=== PATIENT | male | born 1955 | race Two or more races ===

== ENCOUNTER 2024-02-11 12:02 | Emergency (ER) | payer MEDICARE, SELFPAY ==
--- NOTE | ~2024-02-11 | XR_ITS ---
EXAMINATION: XR LUMBOSACRAL SPINE CLINICAL INFORMATION: Low back pain. COMPARISON: None available. TECHNIQUE: Three views of the lumbosacral spine. FINDINGS: Spinal alignment is anatomic in the sagittal projection. Vertebral body heights are preserved. There is very mild intervertebral disc space narrowing at L4-L5 and possibly L5-S1. There is facet arthropathy at these levels as well. There is no acute fracture. Sacroiliac joints are preserved. There are cholecystectomy clips. There is a large volume of stool throughout the colon. There is calcification of the abdominal aorta. XR/XR lumbar spine 2-3V IMPRESSION: No acute osseous lumbar spine abnormality. There is very mild degenerative disease at L4-L5 and L5-S1.
[2024-02-11 12:12] VITALS: BP 147/93; PULSE 97; RESP 20; TEMP 35.7; O2SAT 98; BMI 29.1
--- NOTE | 2024-02-11 12:12 | ED.EXTPRO ---
HPI - Extremity Problem General Chief complaint: Back Pain/Injury Stated complaint: L Leg Pain Radiating From Back Time Seen by Provider: 02/11/24 15:55 Source: patient and family Mode of arrival: ambulatory Limitations: no limitations History of Present Illness HPI Narrative: 68-year-old male with no significant past medical history presents emergency department with his , for complaints of left-sided back pain radiating into his lateral thigh and into the foot for the past 3 days. He reports he attempted to move a washing machine on his own began having pain the next day. He denies any falls or known trauma to the back. He states he has been using [id number] ibuprofen with no relief in symptoms. Pertinent positives and negatives discussed in HPI Related Data Previous Rx's ?Medication ?Instructions ?Recorded cyclobenzaprine 5 mg tablet 5 mg PO TID PRN muscle spasm #14 02/11/24 tabs lidocaine 5 % topical patch 1 patch topical DAILY #15 ea 02/11/24 Allergies Allergy/AdvReac Type Severity Reaction Status Date / Time No Known Allergies Allergy Verified 02/11/24 12:13 Review of Systems Review of Systems: Yes all other systems are reviewed and are negative [facility] Social History Social History Advance Directives: No Advance Directives Information Provided: No Do you have a plan to hurt others: No Plan Physical Exam Vital Signs: Vital Signs: Last Vital Signs Temp 96.6 F L 02/11/24 16:18 Pulse 73 02/11/24 16:18 Resp 13 02/11/24 16:18 BP 136/95 H 02/11/24 16:18 Pulse Ox 98 02/11/24 16:18 O2 Del Method Room Air 02/11/24 16:18 BMI result Body Mass Index 29.1 Nursing notes and vital signs reviewed. GENERAL APPEARANCE: A&0 x 4, generally well appearing, no acute distress HENMT: Normal to inspection, atraumatic, face symmetrical. Normal external ears, nose, and oropharynx clear. EYE: PERRLA, EOM intact, structures appear normal NECK: Supple without stiffness or restricted ROM. HEART: Normal rate and regular rhythm, normal S1/S2, no M/R/G LUNGS: LS CTA, moving air well. Able to speak in complete sentences. No crackles, wheezes, or rhonchi auscultated BACK: No CVAT, no obvious deformity, TTP left lower back EXTREMITIES: Moving all extremities without difficulty. Normal capillary refill. NEUROLOGICAL: Alert and oriented, moving all 4 extremities with equal strength. CN not formally tested but appearing grossly intact. Observed to ambulate with normal gait. Cognition normal SKIN: Warm and dry without any lesions, rash, or visible sores Medical Decision Making Medical Decision Making MDM Narrative: Old records reviewed for previous imaging, lab studies, ECGs, and notes. Patient was assessed the emergency department with no acute distress, toxicity noted, or red flag symptoms. Lumbar spine xray showing no signs of acute findings. Radiologist remarks on degerative disease at L4-L5 and L5-S1. Pt's symptoms are consistent with sciatica with a low suspicion of cauda equina or epidural abscess. Lidocaine patches and cyclobenzaprine sent to preferred pharmacy for management of pain. Pt educated to rest and apply heat for comfort. Patient is safe for discharge at this time with plan for [id number] Tylenol and/or NSAID such as ibuprofen or naproxen for fever/discomfort with dosing as per packaging. HPI, PE, diagnostics, and plan discussed with patient and family with no unanswered questions at this time. Strict return precautions given to return to the emergency department with new, worsening, or concerning emergent symptoms. Recommended to follow-up with there primary care provider in 24-48 hours for further treatment and management. Differential Diagnosis Differential Diagnoses: The differential diagnosis associated with the presentation includes but not limited to cauda equina, epidural abscess, stenosis, radiculopathy, fracture, dislocation, sprain, strain, musculoskeletal injury, sepsis, malignancy Independent Interpretation I performed an independent interpretation of an: Plain X-Ray Interpretation: As negative for acute findings Radiology Impression Discussion of test interpretation with radiology: I have reviewed the radiologist's reading. Independent Historian Clinical information obtained from an independent historian. History obtained from or confirmed by: Spouse Discharge Plan Discharge Clinical Impression: Sciatica Patient Disposition: Home, Self-Care Instructions: Sciatica (ED), Acute Low Back Pain (ED), Lower Back Exercises (ED) Prescriptions: New lidocaine 5 % adhesive patch,medicated 1 patch topical DAILY Qty: 15 0RF Rx Instructions: leave on most painful area for up to 12 hrs cyclobenzaprine 5 mg tablet 5 mg PO TID PRN (Reason: muscle spasm) Qty: 14 0RF Referrals: [facility] [place] Family [facility] [Provider Group] [facility] [place] Primary Care, [place] [Provider Group] [facility] [Provider Group] Stand Alone Forms: Work/School Release Print Language: Welsh
[2024-02-11 16:18] VITALS: BP 136/95; PULSE 73; RESP 13; TEMP 35.9; O2SAT 98
[2024-02-11 17:07] VITALS: BP 136/95; PULSE 73; RESP 13; TEMP 35.9; O2SAT 98
== END 2024-02-11 17:08 | disposition home or self-care (01) ==
PROVIDERS: Emergency Provider Student in an Organized Health Care Education/Training Program
DX: M54.30 Sciatica, unspecified side (principal)
CPT/HCPCS: 72100; 99283; 99284

== ENCOUNTER 2024-03-23 13:22 | Inpatient (IN) | payer SELFPAY ==
--- NOTE | ~2024-03-23 | MR_ITS ---
EXAMINATION: MR BRAIN WITHOUT CONTRAST CLINICAL INFORMATION: Cerebrovascular accident. Transient ischemic attack. Expressive aphasia. COMPARISON: CTA head and neck from 03/23/2024. TECHNIQUE: MRI of the brain was obtained using routine sequences without contrast. FINDINGS: No focal restricted diffusion is demonstrated to suggest acute or subacute cerebral ischemia. No evidence of acute or chronic hemorrhagic products on heme-sensitive imaging. Small region of Chronic encephalomalacia in the left precentral gyrus. Scattered periventricular and deep white matter T2 FLAIR hyperintensities consistent with mild underlying microangiopathy. Arachnoid granulations along the lateral aspect of the right cerebellar hemisphere. The ventricles are normal in morphology and size. No abnormal mass effect. No midline shift. Normal appearance of the pituitary gland. Normal positioning of the cerebellar tonsils. Normal arterial and venous vascular flow voids are present. Normal, homogeneous marrow signal. Mild mucosal thickening of the paranasal sinuses. No signal abnormalities within the mastoids. MR/MR head/brain wo con IMPRESSION: 1. No acute intracranial abnormalities. 2. Small region of chronic encephalomalacia in the left precentral gyrus. Mild underlying microangiopathy.
--- NOTE | ~2024-03-23 | CT_ITS ---
CT ANGIOGRAM NECK WITH CONTRAST CT ANGIOGRAM BRAIN WITH CONTRAST CLINICAL INFORMATION: Dysarthria. Slurred speech and right-sided weakness. COMPARISON: Head CT 03/23/2024. TECHNIQUE: Test bolus sequences followed by intravenous administration 70 mL of Omnipaque 350. Helical imaging was performed in the axial plane from the thoracic inlet to the skull vertex. Delayed postcontrast imaging of the head was also performed. The data was processed at the polysomnographic technologist workstation for generation of MIP sequences. Angled MIPs and volume rendered reformatted images were also generated at an offline 3D workstation under concurrent supervision. Stenoses are assessed in accordance with NASCET criteria unless otherwise indicated. This CT examination was performed using dose optimization techniques as appropriate, variously including the following: *Automated exposure control *Adjustment of mA and/or kV according to patient size (this includes techniques or standardized protocols for targeted exams where dose is matched to indication/reason for exam; i.e. extremities or head) *Use of iterative reconstruction technique FINDINGS: BRAIN: [There is no intracranial hemorrhage, hydrocephalus, extra-axial surface collection, midline shift, or other herniation pattern. Rodriguez to white matter differentiation is diffusely maintained without evidence of an evolved acute territorial infarct. The basilar cisterns are preserved. No significant soft tissue abnormality. Small osteoma along the anterior left frontal convexity. No acute osseous abnormality. The paranasal sinuses and the mastoid air cells are well aerated.] CERVICAL SOFT TISSUES AND LUNG APICES: The imaged upper lungs are clear. There is multilevel cervical spondylosis. No significant soft tissue findings within the neck. NECK CTA: [There is a classic 3 vessel configuration of the aortic arch. Proximal arch vessels are non-stenotic. The vertebral arteries are codominant. No significant ostial stenosis is visualized on either side. Both vertebral arteries are widely patent throughout their extracranial cervical course. Both common and internal carotid arteries are normal in course and caliber.] BRAIN CTA: [There is normal opacification of major intracranial arteries. No focal flow-limiting stenosis nor discrete proximal large artery occlusion. No aneurysm. Timing of the contrast bolus allows assessment of the major dural venous sinuses, which all opacify normally] CT/CT angio head neck stroke IMPRESSION: - No acute intracranial findings. No acute territorial infarcts and no intracranial hemorrhage. - No acute arterial occlusions and no significant arterial stenoses within the head or neck. Findings discussed with Mikel Woodward MD at 2:19 PM on 03/23/2024.
--- NOTE | ~2024-03-23 | CT_ITS ---
EXAMINATION: CT HEAD WITHOUT CONTRAST (STROKE PROTOCOL) CLINICAL INFORMATION: Stroke protocol. Slurring of speech, right-sided hemiparesis COMPARISON: None available. TECHNIQUE: Contiguous axial imaging was performed from the skull base to vertex without intravenous administration of contrast. This CT examination was performed using dose optimization techniques as appropriate, variously including the following: *Automated exposure control *Adjustment of mA and/or kV according to patient size (this includes techniques or standardized protocols for targeted exams where dose is matched to indication/reason for exam; i.e. extremities or head) *Use of iterative reconstruction technique DLP: 766 mGy-cm FINDINGS: Ventricles, sulci and cisterns are normal for patient's age. There is no midline shift, no abnormal intra- or extra- axial fluid accumulation. Rodriguez and white matter differentiation is normal. Bone window images show no evidence of skull fracture. CT/CT head for stroke IMPRESSION: 1. Normal CT scan of the brain. 2. No intracranial hemorrhage or skull fracture is seen. 3. No evidence of space occupying lesion could be found. 4. The current plain CT scan of the brain shows no diagnostic evidence of acute cerebral infarction. This critical result was discussed with MARJORIE Jim at 1400 hours on 03/23/2024. It was ascertained that the content and urgency of the report was understood at the time of direct communication.
[2024-03-23 13:23] VITALS: BP 150/88; PULSE 81; RESP 20; TEMP 36.7; O2SAT 98; BMI 26.6
--- NOTE | 2024-03-23 13:26 | ED_ITS ---
<Statement entered by Mikel Woodward MD - 04/08/24 15:02> Please refer to my note or detail regarding this encounter HPI - General Adult General Chief complaint: Weakness Stated complaint: Slurred speech/R arm numbness Time Seen by Provider: 03/23/24 13:34 Related Data Home Medications ?Medication ?Instructions ?Recorded ?Confirmed vitamin D3 25 mcg (1,000 unit)-vit 1 tab PO DAILY 03/23/24 03/23/24 K2 90 mcg disintegrating tablet Previous Rx's ?Medication ?Instructions ?Recorded aspirin 81 mg tablet,delayed 81 mg PO DAILY #90 tabs 03/24/24 release atorvastatin 80 mg tablet 80 mg PO DAILY #90 tabs 03/24/24 blood pressure monitor (Blood #1 ea 03/24/24 Pressure Kit) valsartan 40 mg tablet 20 mg (1/2 x 40 mg) PO BID #60 tabs 03/24/24 Allergies Allergy/AdvReac Type Severity Reaction Status Date / Time No Known Allergies Allergy Verified 03/23/24 13:27 [facility] Past Medical History Medical History (Updated 03/24/24 @ 16:40 by Lukasz Crawford MD) CAD (coronary artery disease) Hypertension Social History Social History (Updated 03/23/24 @ 15:37 by MARJORIE Lozano) Alcohol intake: current Alcohol intake frequency: holidays/special occasions only Comment: previously heavy drinker Patient Tobacco Use Status: Former Tobacco user service: No Physical Exam ED Vital Signs: BMI result Body Mass Index 26.6 Course Course Course Narrative: RME performed by Tamiko Vilchis PA-C. Patient is a 68 year old assigned male at presenting to the emergency department with word slurring, difficulty word finding, mixing words up, and right sided arm numbness/weakness. Patient states last known well was 30 minutes prior to arrival. Detailed physical exam and review of systems are deferred to the licensed clinician. Stroke alert activated. Patient brought back to the main department. registered public surveyor aware. Patient was seen and dispositioned by Dr. Woodward. Please refer to his note from the date of this encounter. Medications Administered Discontinued Medications Generic Name Dose Route Start Last Admin Trade Name Freq PRN Reason Stop Dose Admin Aspirin 81 mg 03/23/24 14:22 03/23/24 14:33 Aspirin 81 Mg Tab.Chew PO 03/23/24 14:23 81 mg ONCE ONE Administration Aspirin 81 mg 03/24/24 09:00 03/24/24 08:33 Aspirin Enteric Coated 81 Mg Tablet. PO 81 mg DAILY NATALY Administration Atorvastatin Calcium 80 mg 03/24/24 09:00 03/24/24 08:32 Atorvastatin Calcium 80 Mg Tablet PO 80 mg DAILY NATALY Administration Enoxaparin Sodium 40 mg 03/23/24 15:30 03/24/24 16:26 Enoxaparin Sodium 40 Mg/0.4 Ml Syringe SUBCUT 40 mg Q24H NATALY Administration Iohexol 100 ml 03/23/24 14:02 03/23/24 14:02 Iohexol 350 Mg/Ml 100 Ml Infus..Btl IV 03/23/24 14:03 70 ml ONCE ONE Administration Potassium Chloride 40 meq 03/23/24 15:43 03/23/24 16:28 Potassium Chloride Packet 20 Meq Packet PO 03/23/24 15:44 40 meq ONCE ONE Administration Sodium Chloride 3 ml 03/23/24 16:00 03/24/24 16:27 0.9 % Sodium Chloride Flush 3 Ml Syringe IVFLUSH 3 ml QSHIFT [facility] Administration Medical Decision Making Lab Data 03/24/24 05:40 03/24/24 05:40 Labs: Lab Results 03/23/24 03/23/24 03/23/24 Range/Units 13:41 13:46 13:46 WBC 7.1 (4.8-10.8) X10*3/uL RBC 4.30 L (4.60-5.80) X10*6/uL Hgb 13.8 L (14.0-18.0) g/dl Hct 38.8 L (42.0-52.0) % MCV 90.2 (80.0-98.0) fL MCH 32.1 (27.0-33.0) pg MCHC 35.6 (31.0-36.0) g/dl RDW 13.1 (11.0-16.0) % Plt Count 206 (160-400) X10*3/uL MPV 9.4 (9.4-12.4) fL Immature Gran % (Auto) 0.4 (0.0-0.4) % Neut % (Auto) 81.7 H (45-73) % Lymph % (Auto) 13.9 L (20-40) % Cherry % (Auto) 3.8 (2-11) % Eos % (Auto) 0.1 (0-4) % Baso % (Auto) 0.1 (0-2) % Lymph # (Auto) 1.0 L (1.2-4.9) X10*3/uL Cherry # (Auto) 0.3 (0.1-1.2) X10*3/uL Eos # (Auto) 0.0 (0.0-0.4) X10*3/uL Baso # (Auto) 0.0 (0.0-0.2) X10*3/uL Abs Immat Gran (auto) 0.03 (0.00-0.03) X10*3/uL Absolute Neuts (auto) 5.8 (2.0-8.3) x10*3/uL Absolute Nucleated RBC 0.000 (0.0-0.012) X10*3/uL Nucleated RBC % (auto) 0.0 (0.0-0.2) /100WBC PT 11.7 (11.1-13.3) SEC Whole Blood PT (11.1-13.5) sec INR 1.0 (0.9-1.1) Whole Blood INR (0.9-1.1) APTT 29.8 (26.0-36.8) SEC Sodium 139 (135-145) mmol/L Potassium 3.2 L (3.3-5.1) mmol/L Chloride 104 (96-108) mmol/L Carbon Dioxide 28 (22-29) mmol/L Anion Gap 10 L (12-20) BUN 19 H (9-16) mg/dL Creatinine 0.96 (0.5-1.4) mg/dL Estim Creat Clear Calc 69.8 Estimated GFR > 60 POC Glucose 130 H (60-115) mg/dL Random Glucose 132 H 131 H (60-115) mg/dL Estimat Average Glucose 131 mg/dL Hemoglobin A1c % 6.2 H (<6.0) % Calcium 9.4 (8.4-10.2) mg/dL Phosphorus 2.6 L (2.7-4.5) mg/dL Magnesium 1.8 (1.6-2.6) mg/dL Total Bilirubin 0.9 (0.0-1.0) mg/dL Direct Bilirubin 0.2 (0.0-0.5) mg/dL AST 16 (5-37) U/L ALT 16 (0-40) U/L Alkaline Phosphatase 55 (39-117) U/L Total Creatine Kinase 144 (38-174) U/L Troponin I High Sens 2.9 (<3.5-35.0) ng/L Total Protein 7.0 (6.5-8.0) g/dL Albumin 4.1 (3.5-5.0) g/dL Triglycerides 167 H (<150) mg/dL Cholesterol 283 H (<200) mg/dL LDL Cholesterol, Calc 212 H (<100) mg/dL HDL Cholesterol 38 L (>40) mg/dL Urine Color Urine Appearance Urine pH (5.0-9.0) Ur Specific [place] (1.005-1.025) Urine Protein (Neg-Trace) mg/dL Urine Glucose (UA) (Negative) mg/dL Urine Ketones (Negative) mg/dL Urine Blood (Negative) Urine Nitrite (Negative) Ur Leukocyte Esterase (Negative) Urine RBC (0-2) /HPF Urine WBC (0-5) /HPF Ur Squamous Epith Cells (0-2) /HPF Urine Bacteria (None Seen) Hyaline Casts (0-2) /LPF 03/23/24 03/23/24 Range/Units 14:10 14:36 WBC (4.8-10.8) X10*3/uL RBC (4.60-5.80) X10*6/uL Hgb (14.0-18.0) g/dl Hct (42.0-52.0) % MCV (80.0-98.0) fL MCH (27.0-33.0) pg MCHC (31.0-36.0) g/dl RDW (11.0-16.0) % Plt Count (160-400) X10*3/uL MPV (9.4-12.4) fL Immature Gran % (Auto) (0.0-0.4) % Neut % (Auto) (45-73) % Lymph % (Auto) (20-40) % Cherry % (Auto) (2-11) % Eos % (Auto) (0-4) % Baso % (Auto) (0-2) % Lymph # (Auto) (1.2-4.9) X10*3/uL Cherry # (Auto) (0.1-1.2) X10*3/uL Eos # (Auto) (0.0-0.4) X10*3/uL Baso # (Auto) (0.0-0.2) X10*3/uL Abs Immat Gran (auto) (0.00-0.03) X10*3/uL Absolute Neuts (auto) (2.0-8.3) x10*3/uL Absolute Nucleated RBC (0.0-0.012) X10*3/uL Nucleated RBC % (auto) (0.0-0.2) /100WBC PT (11.1-13.3) SEC Whole Blood PT 11.7 (11.1-13.5) sec INR (0.9-1.1) Whole Blood INR 1.0 (0.9-1.1) APTT (26.0-36.8) SEC Sodium (135-145) mmol/L Potassium (3.3-5.1) mmol/L Chloride (96-108) mmol/L Carbon Dioxide (22-29) mmol/L Anion Gap (12-20) BUN (9-16) mg/dL Creatinine (0.5-1.4) mg/dL Estim Creat Clear Calc Estimated GFR POC Glucose (60-115) mg/dL Random Glucose (60-115) mg/dL Estimat Average Glucose mg/dL Hemoglobin A1c % (<6.0) % Calcium (8.4-10.2) mg/dL Phosphorus (2.7-4.5) mg/dL Magnesium (1.6-2.6) mg/dL Total Bilirubin (0.0-1.0) mg/dL Direct Bilirubin (0.0-0.5) mg/dL AST (5-37) U/L ALT (0-40) U/L Alkaline Phosphatase (39-117) U/L Total Creatine Kinase (38-174) U/L Troponin I High Sens (<3.5-35.0) ng/L Total Protein (6.5-8.0) g/dL Albumin (3.5-5.0) g/dL Triglycerides (<150) mg/dL Cholesterol (<200) mg/dL LDL Cholesterol, Calc (<100) mg/dL HDL Cholesterol (>40) mg/dL Urine Color Yellow Urine Appearance Clear Urine pH 6.0 (5.0-9.0) Ur Specific [place] 1.015 (1.005-1.025) Urine Protein Trace (Neg-Trace) mg/dL Urine Glucose (UA) Negative (Negative) mg/dL Urine Ketones Negative (Negative) mg/dL Urine Blood Moderate (2+) H (Negative) Urine Nitrite Negative (Negative) Ur Leukocyte Esterase Negative (Negative) Urine RBC 6-10 H (0-2) /HPF Urine WBC 0-5 (0-5) /HPF Ur Squamous Epith Cells 0-2 (0-2) /HPF Urine Bacteria None Seen (None Seen) Hyaline Casts 0-2 (0-2) /LPF Discharge Plan Discharge Clinical Impression: Acute CVA (cerebrovascular accident), Hypertension Patient Disposition: Admitted As Inpatient Interventions: Admission Worksheet (ED) Last Done: 03/23/24 16:36 Discharge Date/Time: 03/23/24 19:09
--- NOTE | 2024-03-23 13:28 | ECG_ITS ---
Test Reason : STROKE Blood Pressure : / mmHG Vent. Rate : 073 BPM Atrial Rate : 073 BPM P-R Int : 158 ms QRS Dur : 096 ms QT Int : 394 ms P-R-T Axes : 034 -37 -01 degrees QTc Int : 434 ms Normal sinus rhythm Left axis deviation Minimal voltage criteria for LVH, may be normal variant ( R in aVL ) Inferior infarct , age undetermined Possible Anterior infarct , age undetermined Abnormal ECG No previous ECGs available Referred By: Tamiko Vilchis Electronically Signed By:NADJA SALMON
--- NOTE | 2024-03-23 13:36 | ED.GENADULT ---
HPI - General Adult General Chief complaint: Weakness Stated complaint: Slurred speech/R arm numbness Time Seen by Provider: 03/23/24 13:34 Source: patient and family () History of Present Illness HPI narrative: 68 years old without significant past medical history, presents emergency room for dysarthria. Patient reports that he woke up around 7:00 a.m. this morning feeling off and feeling that his speech was ?not normal ? 30 minutes prior to presentation so at around 1:00 p.m., patient told his that he was having the symptoms and therefore they presented to the emergency room for evaluation. Per patient is seems confused and his speech seems off compared to baseline. In triage was noted a mild right side facial droop and mild right side right upper extremity drift on physical exam When I repeated my exam I saw a small facial droop and I noticed dysarthria but I did not appreciate any right side drift. NIHSS is 2 based on dysarthria and facial droop Patient was his usual self until when he went to sleep. No abdominal pain nausea or vomiting No reported trauma Related Data Previous Rx's ?Medication ?Instructions ?Recorded cyclobenzaprine 5 mg tablet 5 mg PO TID PRN muscle spasm #14 02/11/24 tabs lidocaine 5 % topical patch 1 patch topical DAILY #15 ea 02/11/24 Allergies Allergy/AdvReac Type Severity Reaction Status Date / Time No Known Allergies Allergy Verified 03/23/24 13:27 Review of Systems Review of Systems: Yes all other systems are reviewed and are negative [facility] Social History Social History Advance Directives: No Advance Directives Information Provided: No Physical Exam ED Vital Signs: Vital Signs - 24 hr 03/23/24 13:23 03/23/24 14:11 Temperature 98.1 F 97.7 F Pulse Rate 81 72 Respiratory Rate 20 16 Blood Pressure 150/88 H 142/85 H Pulse Oximetry 98 96 Oxygen Delivery Method Room Air Room Air BMI result Body Mass Index 26.6 General: Alert, Not in Distress Skin: No rash, warm HEENT: Atraumatic, No Exudate or Pharyngeal Erythema Resp: Normal Breath sounds bilaterally Cardio: Regular rate and Rhythm, Normal S1, S2 ABD: Abd soft, non tender, no guarding or rebound. Normal Bowel sounds. : No cva tenderness Neuro: Alert, oriented x4, PERRL Strenght 5/5 on all extremities Sensation is preserved in both lower and upper extremities Index to nose: normal Cranial Nerves : mild R side facial droop but otherwise normal exam mild dysarthria, no aphasia No neglet. Visual powers are normal bilaterally Psych: Cooperative, NO SI NIH Stroke Scale Internal: Initial- Upon Arrival Time: 13:35 Level of Consciousness: Alert Level of Consciousness Questions: Answers both questions correctly Level of Consciousness Commands: Performs both tasks correctly Best Gaze: Normal Visual: No visual loss Facial Palsy: Minor paralyis Motor Arm (Right): No drift Motor Arm (Left): No drift Motor Leg (Right): No drift Motor Leg (Left): No drift Limb Ataxia: Absent Sensory: Normal (reports that left Lower feele less that R but reports that is normal per his baseline) Best Language: No aphasia Dysarthia: Mild to moderate dysarthria Extinction and Inattention: No abnormality Score: 2 Course Reevaluation(s) Reevaluation #1: Discussed radiology results with radiologist, no negative CT without contrast negative CTA head and neck Discussed case with neurologist: No indication for TNK, recommended aspirin 81 mg and MRI I personally reviewed and interpreted the patient's EKG that shows normal sinus rhythm. Time: 14:22 Reevaluation #2: Discussed with hospitalist. We will admit. Time: 14:35 Medications Administered Discontinued Medications Generic Name Dose Route Start Last Admin Trade Name Cassie PRN Reason Stop Dose Admin Aspirin 81 mg 03/23/24 14:22 03/23/24 14:33 Aspirin 81 Mg Tab.Chew PO 03/23/24 14:23 81 mg ONCE ONE Administration Iohexol 100 ml 03/23/24 14:02 03/23/24 14:02 Iohexol 350 Mg/Ml 100 Ml Infus..Btl IV 03/23/24 14:03 70 ml ONCE ONE Administration Medical Decision Making Medical Decision Making MDM Narrative: Presented to the emergency room for possible stroke, NIHSS score on arrival is 2 Onset of symptoms are unclear since the patient woke up with symptoms at 7:00 a.m.. Stroke code was activated on arrival Plan CTA head and neck CT head non-con EKG CBC, BMP, PT INR Neurologic consult Consult Healthcare Provider Management of the patient was discussed with: Hospitalist and Social Media Intern (Neurologist/radiologist: Negative imaging recommended MRI brain and start aspirin 81 mg.) Lab Data MDM Lab Attestation statement: I reviewed the patient's lab results. 03/23/24 13:46 03/23/24 13:46 Labs: Lab Results 03/23/24 03/23/24 03/23/24 Range/Units 13:41 13:46 13:46 WBC 7.1 (4.8-10.8) X10*3/uL RBC 4.30 L (4.60-5.80) X10*6/uL Hgb 13.8 L (14.0-18.0) g/dl Hct 38.8 L (42.0-52.0) % MCV 90.2 (80.0-98.0) fL MCH 32.1 (27.0-33.0) pg MCHC 35.6 (31.0-36.0) g/dl RDW 13.1 (11.0-16.0) % Plt Count 206 (160-400) X10*3/uL MPV 9.4 (9.4-12.4) fL Immature Gran % (Auto) 0.4 (0.0-0.4) % Neut % (Auto) 81.7 H (45-73) % Lymph % (Auto) 13.9 L (20-40) % Robertson % (Auto) 3.8 (2-11) % Eos % (Auto) 0.1 (0-4) % Baso % (Auto) 0.1 (0-2) % Lymph # (Auto) 1.0 L (1.2-4.9) X10*3/uL Robertson # (Auto) 0.3 (0.1-1.2) X10*3/uL Eos # (Auto) 0.0 (0.0-0.4) X10*3/uL Baso # (Auto) 0.0 (0.0-0.2) X10*3/uL Abs Immat Gran (auto) 0.03 (0.00-0.03) X10*3/uL Absolute Neuts (auto) 5.8 (2.0-8.3) x10*3/uL Absolute Nucleated RBC 0.000 (0.0-0.012) X10*3/uL Nucleated RBC % (auto) 0.0 (0.0-0.2) /100WBC PT 11.7 (11.1-13.3) SEC Whole Blood PT (11.1-13.5) sec INR 1.0 (0.9-1.1) Whole Blood INR (0.9-1.1) APTT 29.8 (26.0-36.8) SEC Sodium 139 (135-145) mmol/L Potassium 3.2 L (3.3-5.1) mmol/L Chloride 104 (96-108) mmol/L Carbon Dioxide 28 (22-29) mmol/L Anion Gap 10 L (12-20) BUN 19 H (9-16) mg/dL Creatinine 0.96 (0.5-1.4) mg/dL Estim Creat Clear Calc 69.8 Estimated GFR > 60 POC Glucose 130 H (60-115) mg/dL Random Glucose 132 H 131 H (60-115) mg/dL Calcium 9.4 (8.4-10.2) mg/dL Phosphorus 2.6 L (2.7-4.5) mg/dL Magnesium 1.8 (1.6-2.6) mg/dL Total Bilirubin 0.9 (0.0-1.0) mg/dL Direct Bilirubin 0.2 (0.0-0.5) mg/dL AST 16 (5-37) U/L ALT 16 (0-40) U/L Alkaline Phosphatase 55 (39-117) U/L Total Creatine Kinase 144 (38-174) U/L Troponin I High Sens 2.9 (<3.5-35.0) ng/L Total Protein 7.0 (6.5-8.0) g/dL Albumin 4.1 (3.5-5.0) g/dL 03/23/24 Range/Units 14:10 WBC (4.8-10.8) X10*3/uL RBC (4.60-5.80) X10*6/uL Hgb (14.0-18.0) g/dl Hct (42.0-52.0) % MCV (80.0-98.0) fL MCH (27.0-33.0) pg MCHC (31.0-36.0) g/dl RDW (11.0-16.0) % Plt Count (160-400) X10*3/uL MPV (9.4-12.4) fL Immature Gran % (Auto) (0.0-0.4) % Neut % (Auto) (45-73) % Lymph % (Auto) (20-40) % Robertson % (Auto) (2-11) % Eos % (Auto) (0-4) % Baso % (Auto) (0-2) % Lymph # (Auto) (1.2-4.9) X10*3/uL Robertson # (Auto) (0.1-1.2) X10*3/uL Eos # (Auto) (0.0-0.4) X10*3/uL Baso # (Auto) (0.0-0.2) X10*3/uL Abs Immat Gran (auto) (0.00-0.03) X10*3/uL Absolute Neuts (auto) (2.0-8.3) x10*3/uL Absolute Nucleated RBC (0.0-0.012) X10*3/uL Nucleated RBC % (auto) (0.0-0.2) /100WBC PT (11.1-13.3) SEC Whole Blood PT 11.7 (11.1-13.5) sec INR (0.9-1.1) Whole Blood INR 1.0 (0.9-1.1) APTT (26.0-36.8) SEC Sodium (135-145) mmol/L Potassium (3.3-5.1) mmol/L Chloride (96-108) mmol/L Carbon Dioxide (22-29) mmol/L Anion Gap (12-20) BUN (9-16) mg/dL Creatinine (0.5-1.4) mg/dL Estim Creat Clear Calc Estimated GFR POC Glucose (60-115) mg/dL Random Glucose (60-115) mg/dL Calcium (8.4-10.2) mg/dL Phosphorus (2.7-4.5) mg/dL Magnesium (1.6-2.6) mg/dL Total Bilirubin (0.0-1.0) mg/dL Direct Bilirubin (0.0-0.5) mg/dL AST (5-37) U/L ALT (0-40) U/L Alkaline Phosphatase (39-117) U/L Total Creatine Kinase (38-174) U/L Troponin I High Sens (<3.5-35.0) ng/L Total Protein (6.5-8.0) g/dL Albumin (3.5-5.0) g/dL Independent Interpretation I performed an independent interpretation of an: EKG (I personally reviewed and interpreted the patient's EKG, sinus rhythm) and CT Scan (I personally reviewed and interpreted the patient's CT head without contrast, no active bleeding) Radiology Impression Radiologist Impression: CT/CT angio head neck stroke IMPRESSION: - No acute intracranial findings. No acute territorial infarcts and no intracranial hemorrhage. - No acute arterial occlusions and no significant arterial stenoses within the head or neck. Findings discussed with Mikel Woodward MD at 2:19 PM on 03/23/2024. Discharge Plan Discharge Clinical Impression: Acute CVA (cerebrovascular accident), Hypertension Patient Disposition: Admitted As Inpatient Prescriptions: No Action lidocaine 5 % adhesive patch,medicated 1 patch topical DAILY Qty: 15 0RF Rx Instructions: leave on most painful area for up to 12 hrs cyclobenzaprine 5 mg tablet 5 mg PO TID PRN (Reason: muscle spasm) Qty: 14 0RF Print Language: Indonesian
[2024-03-23 13:44] LABS: Glucose, Whole Blood 130 mg/dL (60-115)
--- NOTE | 2024-03-23 13:50 | PC.NURSE ---
pt brought in from triage as a stroke alert. pt immediately to CT. 20gIV placed in the right AC - labs obtained/sent to lab.
[2024-03-23 13:51] LABS: MANUAL DIFF FLAG NO
[2024-03-23 14:00] LABS: Basophils Percent Auto 0.1 % (0-2); Eosinophils Percent Auto 0.1 % (0-4); Hematocrit 38.8 % (42.0-52.0); Hemoglobin 13.8 g/dl (14.0-18.0); Imm Gran Abs Auto 0.03 X10*3/uL (0.00-0.03); Imm Gran Pct Auto 0.4 % (0.0-0.4); Lymphocytes Percent Auto 13.9 % (20-40); Mean Corpuscular HGB Conc 35.6 g/dl (31.0-36.0); Mean Corpuscular Hemoglobin 32.1 pg (27.0-33.0); Mean Corpuscular Volume 90.2 fL (80.0-98.0); Mean Platelet Volume 9.4 fL (9.4-12.4); Monocytes Absolute Auto 0.3 X10*3/uL (0.1-1.2); Monocytes Percent Auto 3.8 % (2-11); Neutrophils Absolute Auto 5.8 x10*3/uL (2.0-8.3); Neutrophils Percent Auto 81.7 % (45-73); Platelet Count 206 X10*3/uL (160-400); Red Cell Distribution Width 13.1 % (11.0-16.0); White Blood Count 7.1 X10*3/uL (4.8-10.8)
[2024-03-23] MEDS: iohexoL 350 MG/ML 100 ML INFUS..BTL IV (14:02)
[2024-03-23 14:04] LABS: Glucose Random 131 mg/dL (60-115); Prothrombin Time 11.7 SEC (11.1-13.3)
[2024-03-23 14:07] LABS: Partial Thromboplastin Time 29.8 SEC (26.0-36.8)
[2024-03-23 14:10] LABS: Alanine Aminotransferase 16 U/L (0-40); Albumin Level 4.1 g/dL (3.5-5.0); Alkaline Phosphatase 55 U/L (39-117); Anion Gap 10 (12-20); Aspartate Amino Transferase 16 U/L (5-37); Bilirubin Direct 0.2 mg/dL (0.0-0.5); Bilirubin Total 0.9 mg/dL (0.0-1.0); Blood Urea Nitrogen 19 mg/dL (9-16); Calcium 9.4 mg/dL (8.4-10.2); Carbon Dioxide 28 mmol/L (22-29); Chloride 104 mmol/L (96-108); Creatinine Clr Calc Pharmacy 69.8; Estimated Glomerular Filt Rate > 60; Glucose Random 132 mg/dL (60-115); Magnesium 1.8 mg/dL (1.6-2.6); Phosphorus 2.6 mg/dL (2.7-4.5); Potassium 3.2 mmol/L (3.3-5.1); Sodium 139 mmol/L (135-145)
[2024-03-23 14:11] VITALS: BP 142/85; PULSE 72; RESP 16; TEMP 36.5; O2SAT 96
[2024-03-23 14:14] LABS: Prothrombin Time Whole Bld POC 11.7 sec (11.1-13.5)
[2024-03-23 14:17] LABS: Troponin-I High Sensitivity 2.9 ng/L (<3.5-35.0)
--- NOTE | 2024-03-23 14:20 | PC.NURSE ---
pt now in ED13 at this time. a&ox4. vss and up to date. nsr on the monitor tech. pt currently has no complaints and is, feeling much better. pt verbalizes LKW was last night before he went to sleep. pt verbalizes waking up in the morning around 0700 and not feeling normal. pt states he thought his voice sounded funny. pt went to work - called his on the phone. pt's noted that his words were all mxed up/not making sense/had a slur/not easy to understand. pt's also states he was c/o numbness/tingling in RUE. when arriving into room - no dysarthria noted. neuros intact. face symmetrical. pt able to follow commands w/o difficulty. strength equal bilaterally. ekg performed by tech. pt seen by production control coordinator, PRERNA Pineda. pt resting comfortably in no apparent distress. no sob/wob noted. respirations even/unlabored. family bedside for support. plan of care ongoing. call jones placed within reach.
[2024-03-23 14:26] LABS: Stroke Lab Use COMPLETE
--- NOTE | 2024-03-23 14:30 | MHC.STROKE ---
Called to ED for stroke alert. Pt in CT upon my arrival. Spoke with who states that patient felt well yesterday. No complaints of feeling ill or headache. Reports that patient went to bed and woke around 7 am and went to work. When she spoke with the patient around 1330, he told her that he has felt off since he woke up. reports that his speech seemed funny he was mixing up words and patient c/o right arm feeling numb. Pt presented to triage, evaluated by provider in E and sent to CT scan as a stroke alert. Patient again evaluated by MD and given an NIH score of 2 - slight right facial droop appreciated along with mild dysarthria. Education provided to and patient regarding plan of care. Will continue to assist as needed.
[2024-03-23] MEDS: Aspirin 81 MG TAB.CHEW PO (14:33)
--- NOTE | 2024-03-23 14:33 | PC.NURSE ---
pt passed swallow eval prior to PO medication administration w/o any issues. no difficulties noted. no sob/wob noted. respirations even/unlabored. UA obtained/sent to lab. pt's daughter bedside for support. plan of care ongoing. call jones placed within reach.
[2024-03-23 14:47] LABS: Appearance Urine Clear; Color Urine Yellow; Glucose Urine UA Negative (Negative); Leukocyte Esterase Urine Negative (Negative); Nitrite Urine Negative (Negative); Specific Gravity - Urine 1.015 (1.005-1.025); UMIC TRIGGER UACC YES; Urine Blood Moderate (2+) (Negative); Urine Ketones Negative (Negative); Urine Protein Trace mg/dL (Neg-Trace)
[2024-03-23 14:50] LABS: Bacteria Urine None Seen (None Seen); Hyaline Casts Urine 0-2 /LPF (0-2); Squamous Epithelial Cell Urine 0-2 /HPF (0-2); WBC Urine 0-5 /HPF (0-5)
--- NOTE | 2024-03-23 15:01 | PC.NURSE ---
pt speaking w/ hospitalist at this time/aware of plan of care moving forward.
--- NOTE | 2024-03-23 15:19 | PHA.MEDREC ---
Pharmacy Consult ? Medication Reconciliation Pharmacy has completed the medication reconciliation. spoke with patients to confirm.
--- NOTE | 2024-03-23 15:26 | PM.IMHP ---
History of Present Illness Date of Service: 03/23/24 [facility] Chief Complaint: word finding difficulty 68-year-old male with history of hypertension noncompliant with previously prescribed antihypertensives, coronary artery disease s/p PCI 2011 presented to the ED earlier today for evaluation of difficulty with word expression that he noted upon waking this morning. Last known well time was last night prior to going to bed. He states he went to work despite his symptoms and then at the end of his shift called his who advised him to go to the ER. EMS reported right upper extremity weakness and right facial droop, however on ER exam, no weakness was observed and facial droop had improved. On my exam, patient is still demonstrating expressive aphasia but with no noted weakness, paresthesias, facial droop, slurred speech, confusion, or gait disturbance. He denies any known history of stroke. No history of cardiac arrhythmia or diabetes that is known. On arrival, patient slightly hypertensive to 142/85 on admission. Vitals otherwise stable. He has a mild normocytic anemia with H/H 13.8/38.8%, hematology studies otherwise unremarkable. Renal function normal, electrolyte levels normal except for a mild hypokalemia of 3.2. Hepatic function within normal limits. Troponin 2.9. Lipid levels pending. Hemoglobin A1c pending. Urinalysis unremarkable. Head CT negative for any acute intracranial abnormality. CTA of the head/neck negative for acute findings. No large vessel occlusion or hemodynamically significant stenoses. Case discussed with Neurology recommending admission with MRI and baby aspirin. He is a former smoker who quit in 2009. Former heavy alcohol consumer but now only drinks occasionally. No illicit drug use or marijuana smoking. Review of Systems Review of Systems: Yes all other systems are reviewed and are negative [facility] Medical History (Updated 03/23/24 @ 15:36 by MARJORIE Lozano) CAD (coronary artery disease) Hypertension Social History (Updated 03/23/24 @ 15:37 by MARJORIE Lozano) Alcohol intake: current Alcohol intake frequency: holidays/special occasions only Comment: previously heavy drinker Patient Tobacco Use Status: Former Tobacco user Meds Allergies Allergy/AdvReac Type Severity Reaction Status Date / Time No Known Allergies Allergy Verified 03/23/24 13:27 Active Medications: Current Medications Acetaminophen (Acetaminophen 325 Mg Tablet) 650 mg PO Q6H PRN PRN Reason: Pain, Mild (Pain Scale 1-3) Aspirin (Aspirin Enteric Coated 81 Mg Tablet.Dr) 81 mg PO DAILY [facility] Atorvastatin Calcium (Atorvastatin Calcium 80 Mg Tablet) 80 mg PO DAILY [facility] Enoxaparin Sodium (Enoxaparin Sodium 40 Mg/0.4 Ml Syringe) 40 mg SUBCUT Q24H NATALY Magnesium Hydroxide (Milk Of Magnesia 30 Ml Oral.Susp) 30 ml PO DAILY PRN PRN Reason: Constipation Melatonin (Melatonin 3 Mg Tablet) 6 mg PO BEDTIME PRN PRN Reason: Insomnia Non-Formulary Medication (Vitamin D3-Vitamin K2) 1 tab PO DAILY [facility] Ondansetron HCl (Ondansetron Hcl 4 Mg/2 Ml Vial) 4 mg IVPUSH Q8H PRN PRN Reason: Nausea and Vomiting Sodium Chloride (0.9 % Sodium Chloride Flush 3 Ml Syringe) 3 ml IVFLUSH QSHIFT [facility] Home Medications ?Medication ?Instructions ?Recorded ?Confirmed ?Last Taken ?Type vitamin D3 25 mcg (1,000 unit)-vit 1 tab PO DAILY 03/23/24 03/23/24 Unknown History K2 90 mcg disintegrating tablet Physical Exam Vital Signs and Narrative: Vital Signs: Last Vital Signs Temp 97.7 F 03/23/24 14:11 Pulse 72 03/23/24 14:11 Resp 16 03/23/24 14:11 BP 142/85 H 03/23/24 14:11 Pulse Ox 96 03/23/24 14:11 O2 Del Method Room Air 03/23/24 14:11 BMI result Body Mass Index 26.6 Constitutional - Awake and Alert, No apparent distress Eyes - PERRLA, EOMI Cardiovascular - S1S2, RRR, No edema Respiratory - Normal lung expansion, Normal respiratory effort, No respiratory distress, CTA bilaterally Gastrointestinal - NT / ND; +BS; No rebound or guarding Extremities - no calf tenderness bilaterally, no swelling Skin - Warm/Dry Neurological - Alert & oriented x3, expressiev aphasia noted, otherwise CN II-XII in tact, 5/5 strength BUE and BLE. No pronator drift, heel to fountain testing normal. Symmetric patellar reflexes and downgoing Babinski Psychological - Appropriate affect Results Labs 03/23/24 13:46 03/23/24 13:46 Labs: Laboratory Results - last 24 hr 03/23/24 03/23/24 03/23/24 13:41 13:46 13:46 MCV 90.2 MCH 32.1 MCHC 35.6 RDW 13.1 Plt Count 206 MPV 9.4 Immature Gran % (Auto) 0.4 Neut % (Auto) 81.7 H Lymph % (Auto) 13.9 L [place] % (Auto) 3.8 Eos % (Auto) 0.1 Baso % (Auto) 0.1 Lymph # (Auto) 1.0 L [place] # (Auto) 0.3 Eos # (Auto) 0.0 Baso # (Auto) 0.0 Abs Immat Gran (auto) 0.03 Absolute Neuts (auto) 5.8 Absolute Nucleated RBC 0.000 Nucleated RBC % (auto) 0.0 PT 11.7 Whole Blood PT INR 1.0 Whole Blood INR APTT 29.8 Anion Gap 10 L Estim Creat Clear Calc 69.8 Estimated GFR > 60 POC Glucose 130 H Random Glucose 132 H 131 H Calcium 9.4 Phosphorus 2.6 L Magnesium 1.8 Total Bilirubin 0.9 Direct Bilirubin 0.2 AST 16 ALT 16 Alkaline Phosphatase 55 Total Creatine Kinase 144 Troponin I High Sens 2.9 Total Protein 7.0 Albumin 4.1 Urine Color Urine Appearance Urine pH Ur Specific [place] Urine Protein Urine Glucose (UA) Urine Ketones Urine Blood Urine Nitrite Ur Leukocyte Esterase Urine RBC Urine WBC Ur Squamous Epith Cells Urine Bacteria Hyaline Casts 03/23/24 03/23/24 14:10 14:36 MCV MCH MCHC RDW Plt Count MPV Immature Gran % (Auto) Neut % (Auto) Lymph % (Auto) [place] % (Auto) Eos % (Auto) Baso % (Auto) Lymph # (Auto) [place] # (Auto) Eos # (Auto) Baso # (Auto) Abs Immat Gran (auto) Absolute Neuts (auto) Absolute Nucleated RBC Nucleated RBC % (auto) PT Whole Blood PT 11.7 INR Whole Blood INR 1.0 APTT Anion Gap Estim Creat Clear Calc Estimated GFR POC Glucose Random Glucose Calcium Phosphorus Magnesium Total Bilirubin Direct Bilirubin AST ALT Alkaline Phosphatase Total Creatine Kinase Troponin I High Sens Total Protein Albumin Urine Color Yellow Urine Appearance Clear Urine pH 6.0 Ur Specific [place] 1.015 Urine Protein Trace Urine Glucose (UA) Negative Urine Ketones Negative Urine Blood Moderate (2+) H Urine Nitrite Negative Ur Leukocyte Esterase Negative Urine RBC 6-10 H Urine WBC 0-5 Ur Squamous Epith Cells 0-2 Urine Bacteria None Seen Hyaline Casts 0-2 Imaging Radiologist's Impressions: Impressions Head CT 03/23/24 13:37 IMPRESSION: 1. Normal CT scan of the brain. 2. No intracranial hemorrhage or skull fracture is seen. 3. No evidence of space occupying lesion could be found. 4. The current plain CT scan of the brain shows no diagnostic evidence of acute cerebral infarction. This critical result was discussed with MARJORIE Jim at 1400 hours on 03/23/2024. It was ascertained that the content and urgency of the report was understood at the time of direct communication. Head/Neck CTA 03/23/24 14:03 IMPRESSION: - No acute intracranial findings. No acute territorial infarcts and no intracranial hemorrhage. - No acute arterial occlusions and no significant arterial stenoses within the head or neck. Findings discussed with Mikel Woodward MD at 2:19 PM on 03/23/2024. Assessment and Plan (1) Expressive aphasia: Status: Acute Plan 68-year-old male with history of hypertension noncompliant with previously prescribed antihypertensives, coronary artery disease s/p PCI 2011 admitted for further management of acute cva #Acute CVA vs TIA -reporting expressive aphasia ongoing since waking this morning. Outside of window for TNK. Right-sided facial droop and upper extremity weakness have resolved on admission -head CT negative for any acute intracranial abnormality. CTA head/neck negative for large vessel occlusion or hemodynamically significant stenosis -MRI brain ordered -81 mg ASA now and continue daily -lipid panel pending, initiate atorvastatin 80 mg daily -hemoglobin A1c pending -echo -passed bedside swallow evaluation, stroke education, neuro checks -PT/OT/DIRECTOR OF RELIGIOUS ACTIVITIES evaluation -neurology evaluation -monitor on telemetry # hypertension -not currently on antihypertensives. Hold on initiating antihypertensives to allow for permissive hypertension #Acute hypokalemia -releted, follow lytes #CAD -add asa, statin DVT prophylaxis-Lovenox Full code Given ongoing symptoms of expressive aphasia with concern for CVA, patient will require inpatient stay at least 2 midnights for further imaging, close monitoring with neuro checks to evaluate for any evolving symptoms, and will require expert consultation Quality Stroke Does the patient have a stroke diagnosis?: Yes Reason for No Anti-thrombotic by Day Two: Drug treatment not indicated VTE Prior VTE?: No VTE Risk Level:: Medical - moderate - high VTE Device Contraindication: Treatment Not Indicated VTE Drug Contraindication: N/A - Med Ordered
[2024-03-23 15:43] LABS: Cholesterol 283 mg/dL (<200); HDL Cholesterol 38 mg/dL (>40); LDL Cholesterol Calculated 212 mg/dL (<100); Triglycerides 167 mg/dL (<150)
[2024-03-23 15:55] LABS: Estimated Average Glucose 131 mg/dL; Hemoglobin A1c % 6.2 % (<6.0)
[2024-03-23] MEDS: Potassium Chloride Packet 20 MEQ PACKET 40 MEQ PO (16:28)
[2024-03-23] MEDS: Enoxaparin Sodium 40 MG/0.4 ML SYRINGE SUBCUT (16:28)
[2024-03-23] MEDS: 0.9 % Sodium Chloride Flush 3 ML SYRINGE IVFLUSH ×2 (16:30→22:32)
--- NOTE | 2024-03-23 16:52 | PC.NURSE ---
MRI form filled out/faxed/placed in pt's chart. admission worksheet complete. transport notified/aware.
[2024-03-23 18:40] VITALS: BMI 28.7
[2024-03-23 20:00] VITALS: BP 130/78; PULSE 89; RESP 18; TEMP 36.2; O2SAT 96
[2024-03-24] VITALS: BP 118/81; PULSE 56; RESP 16; TEMP 36.8; O2SAT 97
[2024-03-24 04:00] VITALS: BP 127/78; PULSE 59; RESP 16; TEMP 36.9; O2SAT 96
[2024-03-24 06:25] LABS: Anion Gap 10 (12-20); Blood Urea Nitrogen 19 mg/dL (9-16); Calcium 9.2 mg/dL (8.4-10.2); Carbon Dioxide 27 mmol/L (22-29); Chloride 109 mmol/L (96-108); Creatinine Clr Calc Pharmacy 74.6; Estimated Glomerular Filt Rate > 60; Glucose Random 101 mg/dL (60-115); Potassium 4.3 mmol/L (3.3-5.1); Sodium 142 mmol/L (135-145)
[2024-03-24 06:27] LABS: Hematocrit 38.6 % (42.0-52.0); Hemoglobin 13.3 g/dl (14.0-18.0); Mean Corpuscular HGB Conc 34.5 g/dl (31.0-36.0); Mean Corpuscular Hemoglobin 31.6 pg (27.0-33.0); Mean Corpuscular Volume 91.7 fL (80.0-98.0); Mean Platelet Volume 9.8 fL (9.4-12.4); Platelet Count 205 X10*3/uL (160-400); Red Blood Count 4.21 X10*6/uL (4.60-5.80); Red Cell Distribution Width 13.3 % (11.0-16.0); White Blood Count 6.4 X10*3/uL (4.8-10.8)
--- NOTE | 2024-03-24 07:00 | CA_ITS ---
Transthoracic Echocardiogram Patient (Last, First, Middle): Rajat Tate, Gender: Male Date of : 1955 Age: 68 Procedure Date: 03/24/2024 Procedure Type: Transthoracic Echocardiogram Location: [facility] [place] Height: 170.18 cm Weight: 77.11 kg BSA: 1.89 m2 Heart Rate: 65 bpm BP: 142 / 85 mmHg Senior Analytic Consultant: ANNALISA Referring MD: Elif AMADOR Symptoms: tia/cva Study Quality: Adequate w/Contrast ECG Rhythm: Sinus Conclusions: - The left ventricular systolic function is moderately decreased. The visually estimated ejection fraction is between 35-40%. - The inferolateral wall, the basal inferior, and mid inferior segments are hypokinetic. - There is mild calcification of the aortic valve. - No obvious valvular pathology seen on this study. - There is mild dilatation of the sinuses of Valsalva measuring 4.10 cm and mild dilatation of the ascending aorta measuring 4.20 cm. Findings Procedure Information Contrast agent, definity, is being given per protocol without apparent complications. Left Ventricle Normal left ventricular cavity size. There is mildly increased left ventricular wall thickness. The left ventricular systolic function is moderately decreased. The visually estimated ejection fraction is between 35 40%. Diastolic function is normal for age. Wall Motion Rest Echo Findings The inferolateral wall, the basal inferior, and mid inferior segments are hypokinetic. Right Ventricle Normal right ventricular cavity size and systolic function. Atria Both atria are normal in size. Aortic Valve There is a normal trileaflet aortic valve. There is mild calcification of the aortic valve. There is no aortic valve stenosis. There is trace (trivial) aortic valve regurgitation. Mitral Valve The mitral valve appears normal. There is trace mitral valve regurgitation. There is no mitral valve stenosis. Pulmonic Valve The pulmonic valve is likely normal. Tricuspid Valve Normal tricuspid valve structure. There is trace tricuspid valve regurgitation. There is no evidence of pulmonary hypertension. Great Vessels There is mild dilatation of the sinuses of Valsalva measuring 4.10 cm and mild dilatation of the ascending aorta measuring 4.20 cm. Venous The inferior vena cava is mildly dilated and collapses less than 50% with inspiration. Pericardium/Pleural There is no evidence of pericardial effusion. Prior Study Comparison No prior study available for comparison. Recommendations, Care & Conclusions No obvious valvular pathology seen on this study. Measurements 2D Linear Measurements IVSd: 1.18 0.6-0.9/0.6-1.0 cm LVIDd: 5.05 3.9-5.3/4.2-5.9 cm LVIDd Index: 2.67 2.4-3.2/2.2-3.1 cm/m2 LVIDs: 4.21 2.0-3.6 cm LVPWd: 1.05 0.7-1.1 cm LA Diam: 3.20 2.7-3.8/3.0-4.0 cm LAIDs Index: 1.69 1.5-2.3 cm/m2 LV Mass: 267.32 67-162/88-224 g LV Mass Index: 141.44 43-95/49-115 g/m2 LVOT Diam: 2.40 3.0+(-)1.3 cm 2D Systolic Function EF 4C: 53.10 >55% EF 2C: 49.30 >55% EF BiP: 49.70 >55% Mitral Valve MV Pk E: 0.58 MV PK A: 0.69 MV Decel Time: 223.00 E/A: 0.80 E'Lateral: 7.94 E'Medial: 5.55 E/E' Med: 10.50 E/E' Lat: 7.30 PHT: 65.00 MVA PHT: 3.38 Decel Dawes: 2.61 Aortic Valve AoV Pk Lester: 1.11 AoV Mn Lester: 0.88 AoV VTI: 0.25 AoV Pk Grad: 5.00 Aov Mn Grad: 3.00 ANA CRISTINA Cont.VTI: 3.62 AI Pk Lester: 4.71 AI Dawes: 2.07 LVOT LVOT Pk Lester: 0.95 LVOT Mn Lester: 0.68 LVOT VTI: 0.20 LVOT Pk Grad: 4.00 LVOT Mn Grad: 2.00 LVOT Diam: 2.40 LVOT Area: 4.52 Diastolic Function MV Pk E: 0.58 MV Pk A: 0.69 E/A: 0.80 E'Medial: 5.55 E/E' Med: 10.50 E' Laterial: 7.94 E/E' Lat: 7.30 Right Ventricle TAPSE (mm): 19.40 TVS' Lester: 13.20 Tricuspid Valve RA Press: 8.00 Great Vessels Aorta Sinus of Valsalva: 4.10 2.0-3.5 cm Ao Asc: 4.20 2.1-3.4 cm Pulmonary Valve PV Pk Lester: 1.00 Peak PV Grad: 4.00 Updated in Other Vendor System with Status of Final Abdiel Price MD electronically signed on 03/24/2024 12:42:48 PM with status of Final
[2024-03-24 08:00] VITALS: BP 148/84; PULSE 58; RESP 18; TEMP 36.8; O2SAT 97
[2024-03-24] MEDS: Atorvastatin Calcium 80 MG TABLET PO (08:32)
[2024-03-24] MEDS: 0.9 % Sodium Chloride Flush 3 ML SYRINGE IVFLUSH ×2 (08:33→16:27)
[2024-03-24] MEDS: Aspirin Enteric Coated 81 MG TABLET.DR PO (08:33)
--- NOTE | 2024-03-24 09:11 | MHC.CM.PN ---
Pt lives with his , he does not have a PCP, he just moved here from [place], and he does not have health insurance. He works multimedia coordinator, and said that he is going to get on his employer health insurance plan. Brochure with PCP contact info was given to him. HCP form will be completed here and added to chart. DCP will be home, self care. CM to follow and assist as needed with DC planning.
--- NOTE | 2024-03-24 11:06 | MHC.SLORD ---
Speech Language Pathology Order Status: Pt reports complete symptom resolution, per MD OK to discontinue order. Please re-consult if status changes.
--- NOTE | 2024-03-24 11:21 | PM.NEUROCN ---
History of Present Illness Data of Consult Service Date: 03/24/24 Primary Care Provider: None Physician HPI Reason for consult: ?Stroke This is a 68-year-old male with history of hypertension, noncompliant with meds and ramirez sno local doc after moving from [place], coronary artery disease s/p PCI 2011, presented to the ED for evaluation of difficulty speaking and expressing upon waking 03/23/24. Last known well time was last night prior to going to bed. He states he went to work despite his symptoms and then at the end of his shift called his who advised him to go to the ER. EMS reported right upper extremity weakness and right facial droop, however on ER exam, no weakness or facial droop was noted. Initial exam showed some expressive aphasia but with no noted weakness, paresthesias, facial droop, slurred speech, confusion, or gait disturbance. He thinks he may have had a stroke 12 yrs ago. No history of cardiac arrhythmia or diabetes that is known. On arrival, patient slightly hypertensive to 142/85 on admission. Vitals otherwise stable. He has a mild normocytic anemia with H/H 13.8/38.8%, hematology studies otherwise unremarkable. Renal function normal, electrolyte levels normal except for a mild hypokalemia of 3.2. Hepatic function within normal limits. Troponin 2.9. Lipid levels pending. Hemoglobin A1c pending. Head CT and head and neck CTA were negative with no large vessel occlusion or hemodynamically significant stenoses. MRI shows no acute stroke. 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 He is a former smoker who quit in 2009. Former heavy alcohol consumer but now only drinks occasionally. No illicit drug use or marijuana smoking. [facility] Past Medical History Medical History CAD (coronary artery disease) Hypertension Social History Social History (Updated 03/23/24 @ 15:37 by MARJORIE Lozano) Alcohol intake: current Alcohol intake frequency: holidays/special occasions only Comment: previously heavy drinker Patient Tobacco Use Status: Former Tobacco user Smoked in Last 30 Days: No Use of substances other than those prescribed or required for medical reasons: No Currently Displaying Signs/Symptoms of Drug Intoxication Withdrawal: No Have you been hit, kicked, punched, or otherwise hurt by someone within the past year? If so, by whom?: No Do you feel safe in your current relationship?: No Is there a partner from a previous relationship who is making you feel unsafe now?: No Are you made to feel afraid or neglected: No Advance Directives: No Advance Directives Information Provided: No Do you have a plan to hurt others: No Plan Recently lost weight without trying: Unsure Eating poorly because of decreased appetite: No Nutrition Risks: No Nutritional Risk Poor oral hygiene: No service: No Meds Allergies Allergy/AdvReac Type Severity Reaction Status Date / Time No Known Allergies Allergy Verified 03/23/24 13:27 Active Medications: Current Medications Acetaminophen (Acetaminophen 325 Mg Tablet) 650 mg PO Q6H PRN PRN Reason: Pain, Mild (Pain Scale 1-3) Aspirin (Aspirin Enteric Coated 81 Mg Tablet.Dr) 81 mg PO DAILY [facility] Last Admin: 03/24/24 08:33 Dose: 81 mg Atorvastatin Calcium (Atorvastatin Calcium 80 Mg Tablet) 80 mg PO DAILY [facility] Last Admin: 03/24/24 08:32 Dose: 80 mg Enoxaparin Sodium (Enoxaparin Sodium 40 Mg/0.4 Ml Syringe) 40 mg SUBCUT Q24H [facility] Last Admin: 03/23/24 16:28 Dose: 40 mg Magnesium Hydroxide (Milk Of Magnesia 30 Ml Oral.Susp) 30 ml PO DAILY PRN PRN Reason: Constipation Melatonin (Melatonin 3 Mg Tablet) 6 mg PO BEDTIME PRN PRN Reason: Insomnia Ondansetron HCl (Ondansetron Hcl 4 Mg/2 Ml Vial) 4 mg IVPUSH Q8H PRN PRN Reason: Nausea and Vomiting Sodium Chloride (0.9 % Sodium Chloride Flush 3 Ml Syringe) 3 ml IVFLUSH QSHIFT [facility] Last Admin: 03/24/24 08:33 Dose: 3 ml Home Medications ?Medication ?Instructions ?Recorded ?Confirmed ?Last Taken ?Type vitamin D3 25 mcg (1,000 unit)-vit 1 tab PO DAILY 03/23/24 03/23/24 Unknown History K2 90 mcg disintegrating tablet Physical Exam Vital Signs: Vital Signs: Last Vital Signs Temp 98.2 F 03/24/24 08:00 Pulse 58 03/24/24 08:00 Resp 18 03/24/24 08:00 BP 148/84 H 03/24/24 08:00 Pulse Ox 97 03/24/24 08:00 O2 Del Method Room Air 03/24/24 08:00 BMI result Body Mass Index 28.7 Neuro: Other: He is alert and oriented with normal intellectual functions. He has no speech or language deficit. His cranial nerves II through XII are normal with no facial droop. There is no drift of the upper extremities. Muscle tone and strength are normal in all 4 extremities. Deep tendon reflexes symmetrical. Plantar response are flexor Results Labs 03/24/24 05:40 03/24/24 05:40 Labs: Short CBC 03/23/24 03/24/24 Range/Units 13:46 05:40 WBC 7.1 6.4 (4.8-10.8) X10*3/uL Hgb 13.8 L 13.3 L (14.0-18.0) g/dl Hct 38.8 L 38.6 L (42.0-52.0) % Plt Count 206 205 (160-400) X10*3/uL BMP 03/23/24 03/24/24 13:46 05:40 Sodium 139 142 Potassium 3.2 L 4.3 D Chloride 104 109 H Carbon Dioxide 28 27 BUN 19 H 19 H Creatinine 0.96 0.99 Calcium 9.4 9.2 Cardiac Enzymes 03/23/24 Range/Units 13:46 Total Creatine Kinase 144 (38-174) U/L Liver Function 03/23/24 Range/Units 13:46 Total Bilirubin 0.9 (0.0-1.0) mg/dL Direct Bilirubin 0.2 (0.0-0.5) mg/dL AST 16 (5-37) U/L ALT 16 (0-40) U/L Alkaline Phosphatase 55 (39-117) U/L Albumin 4.1 (3.5-5.0) g/dL Urine 03/23/24 Range/Units 14:36 Urine Color Yellow Urine Appearance Clear Urine pH 6.0 (5.0-9.0) Ur Specific [place] 1.015 (1.005-1.025) Urine Protein Trace (Neg-Trace) mg/dL Urine Glucose (UA) Negative (Negative) mg/dL Assessment and Plan (1) Expressive aphasia: Status: Acute He appears to have had a TIA in the left hemisphere. His MRI shows no acute infarct. CTA of the head and neck unremarkable. Recommendation aspirin 81 mg a day. Check lipid profile. Blood pressure control. Woke up with a local PCP for followup. Echocardiogram and outpatient hospital monitor Procedures Date of Service Date of Service: 03/24/24
[2024-03-24 11:50] VITALS: BP 137/82; PULSE 68; RESP 18; TEMP 37; O2SAT 98
--- NOTE | 2024-03-24 13:05 | PM.DS ---
DS: Providers Provider Date of Service: 03/24/24 Date of admission: 03/23/24 15:13 Date of discharge: 03/24/24 Primary care physician: None Physician Consults: 03/23/24 15:18 Consult to Neurology Routine Consulting Provider: [facility] Reason for consultation: tia/cva, expressive aphasia Attending physician on discharge: Lukasz Crawford Discharging clinician: Lukasz Crawford DS: Diagnosis Discharge Diagnosis (1) Expressive aphasia: Status: Acute DS: Summary Hospital Course Hospital Course: 68-year-old male with history of hypertension noncompliant with previously prescribed antihypertensives, coronary artery disease s/p PCI 2011 presented to the ED earlier today for evaluation of difficulty with word expression that he noted upon waking this morning. Last known well time was last night prior to going to bed. He states he went to work despite his symptoms and then at the end of his shift called his who advised him to go to the ER. EMS reported right upper extremity weakness and right facial droop, however on ER exam, no weakness was observed and facial droop had improved. On my exam, patient is still demonstrating expressive aphasia but with no noted weakness, paresthesias, facial droop, slurred speech, confusion, or gait disturbance. He denies any known history of stroke. No history of cardiac arrhythmia or diabetes that is known. On arrival, patient slightly hypertensive to 142/85 on admission. Vitals otherwise stable. He has a mild normocytic anemia with H/H 13.8/38.8%, hematology studies otherwise unremarkable. Renal function normal, electrolyte levels normal except for a mild hypokalemia of 3.2. Hepatic function within normal limits. Troponin 2.9. Lipid levels pending. Hemoglobin A1c pending. Urinalysis unremarkable. Head CT negative for any acute intracranial abnormality. CTA of the head/neck negative for acute findings. No large vessel occlusion or hemodynamically significant stenoses. Case discussed with Neurology recommending admission with MRI and baby aspirin. He is a former smoker who quit in 2009. Former heavy alcohol consumer but now only drinks occasionally. No illicit drug use or marijuana smoking. Hospital course: Patient was admitted to hospital because of expressive aphasia-possible TIA, CTA and MRI negative, echo EF is 40%, seen by neurology recommended to continue aspirin, statin, seen by PT recommended home with no services. Patient has mild fluctuating BP-monitor BP at home if stay consistently elevated above 140 mmhg -start valsartan,and further management outpatient, patient was strongly advised to follow-up with PCP outpatient. HLP-started on statin. Patient was strongly advised to get PCP appointment-patient is saying that he will get it next week through his employer, seems motivated to make appointment with PCP also told him once he has insurance settled he can also called Cardiology office, need to follow-up with Cardiology. plan: Continue aspirin, statin as per Neurology. possible htn:if BP at home stay consistently elevated above 140 mmhg -start valsartan,and further management outpatient, patient was strongly advised to follow-up with PCP outpatient. HLP-started on statin. PCP and consider possible cardiology evaluation outpatient. Above management discussed with the patient and his and niece at bedside in detail length, they all understand and agreement with the above plan, time spent 40 minute. Time Attestation Total time managing care of this patient today: 40 mintues. Discharge Coordination Time (in mins): 40 min Quality: Safe Use of Opioids Does Pt have an Active Cancer Diagnosis on the Problem List?: No Quality: Stroke Does the patient have a stroke diagnosis?: No Physical Exam Vital Signs: Vital Signs: Last Vital Signs Temp 98.6 F 03/24/24 11:50 Pulse 68 03/24/24 11:50 Resp 18 03/24/24 11:50 BP 137/82 03/24/24 11:50 Pulse Ox 98 03/24/24 11:50 O2 Del Method Room Air 03/24/24 11:50 BMI result Body Mass Index 28.7 Appearance: Alert.? Oriented X3.? cvs: [id number], [id number] , no murmur res: clear to auscultation ,no rhonchii or wheezing abd: no rebound or guarding ,nt, bs present. ext pulses present , no cyanosis . neuro: axo3 , nonfocal. DS: Data Data Completed and Pending Labs on day of discharge: Laboratory Results - last 24 hr 03/23/24 03/23/24 03/23/24 13:41 13:46 13:46 WBC 7.1 RBC 4.30 L Hgb 13.8 L Hct 38.8 L MCV 90.2 MCH 32.1 MCHC 35.6 RDW 13.1 Plt Count 206 MPV 9.4 Immature Gran % (Auto) 0.4 Neut % (Auto) 81.7 H Lymph % (Auto) 13.9 L [place] % (Auto) 3.8 Eos % (Auto) 0.1 Baso % (Auto) 0.1 Lymph # (Auto) 1.0 L [place] # (Auto) 0.3 Eos # (Auto) 0.0 Baso # (Auto) 0.0 Abs Immat Gran (auto) 0.03 Absolute Neuts (auto) 5.8 Absolute Nucleated RBC 0.000 Nucleated RBC % (auto) 0.0 PT 11.7 Whole Blood PT INR 1.0 Whole Blood INR APTT 29.8 Sodium 139 Potassium 3.2 L Chloride 104 Carbon Dioxide 28 Anion Gap 10 L BUN 19 H Creatinine 0.96 Estim Creat Clear Calc 69.8 Estimated GFR > 60 POC Glucose 130 H Random Glucose 132 H 131 H Estimat Average Glucose 131 Hemoglobin A1c % 6.2 H Calcium 9.4 Phosphorus 2.6 L Magnesium 1.8 Total Bilirubin 0.9 Direct Bilirubin 0.2 AST 16 ALT 16 Alkaline Phosphatase 55 Total Creatine Kinase 144 Troponin I High Sens 2.9 Total Protein 7.0 Albumin 4.1 Triglycerides 167 H Cholesterol 283 H LDL Cholesterol, Calc 212 H HDL Cholesterol 38 L Urine Color Urine Appearance Urine pH Ur Specific [place] Urine Protein Urine Glucose (UA) Urine Ketones Urine Blood Urine Nitrite Ur Leukocyte Esterase Urine RBC Urine WBC Ur Squamous Epith Cells Urine Bacteria Hyaline Casts 03/23/24 03/23/24 03/24/24 14:10 14:36 05:40 WBC 6.4 RBC 4.21 L Hgb 13.3 L Hct 38.6 L MCV 91.7 MCH 31.6 MCHC 34.5 RDW 13.3 Plt Count 205 MPV 9.8 Immature Gran % (Auto) Neut % (Auto) Lymph % (Auto) [place] % (Auto) Eos % (Auto) Baso % (Auto) Lymph # (Auto) [place] # (Auto) Eos # (Auto) Baso # (Auto) Abs Immat Gran (auto) Absolute Neuts (auto) Absolute Nucleated RBC 0.000 Nucleated RBC % (auto) 0.0 PT Whole Blood PT 11.7 INR Whole Blood INR 1.0 APTT Sodium 142 Potassium 4.3 D Chloride 109 H Carbon Dioxide 27 Anion Gap 10 L BUN 19 H Creatinine 0.99 Estim Creat Clear Calc 74.6 Estimated GFR > 60 POC Glucose Random Glucose 101 Estimat Average Glucose Hemoglobin A1c % Calcium 9.2 Phosphorus Magnesium Total Bilirubin Direct Bilirubin AST ALT Alkaline Phosphatase Total Creatine Kinase Troponin I High Sens Total Protein Albumin Triglycerides Cholesterol LDL Cholesterol, Calc HDL Cholesterol Urine Color Yellow Urine Appearance Clear Urine pH 6.0 Ur Specific [place] 1.015 Urine Protein Trace Urine Glucose (UA) Negative Urine Ketones Negative Urine Blood Moderate (2+) H Urine Nitrite Negative Ur Leukocyte Esterase Negative Urine RBC 6-10 H Urine WBC 0-5 Ur Squamous Epith Cells 0-2 Urine Bacteria None Seen Hyaline Casts 0-2 Imaging Chest x-ray: Radiologist's impression: ITS Impressions Head CT 03/23/24 13:37 IMPRESSION: 1. Normal CT scan of the brain. 2. No intracranial hemorrhage or skull fracture is seen. 3. No evidence of space occupying lesion could be found. 4. The current plain CT scan of the brain shows no diagnostic evidence of acute cerebral infarction. This critical result was discussed with MARJORIE Jim at 1400 hours on 03/23/2024. It was ascertained that the content and urgency of the report was understood at the time of direct communication. Head/Neck CTA 03/23/24 14:03 IMPRESSION: - No acute intracranial findings. No acute territorial infarcts and no intracranial hemorrhage. - No acute arterial occlusions and no significant arterial stenoses within the head or neck. Findings discussed with Mikel Woodward MD at 2:19 PM on 03/23/2024. Brain MRI 03/23/24 18:00 IMPRESSION: 1. No acute intracranial abnormalities. 2. Small region of chronic encephalomalacia in the left precentral gyrus. Mild underlying microangiopathy. Additional Comments Additional comments: echo: Conclusions: - The left ventricular systolic function is moderately decreased. The visually estimated ejection fraction is between 35-40%. - The inferolateral wall, the basal inferior, and mid inferior segments are hypokinetic. - There is mild calcification of the aortic valve. - No obvious valvular pathology seen on this study. - There is mild dilatation of the sinuses of Valsalva measuring 4.10 cm and mild dilatation of the ascending aorta measuring 4.20 cm. Discharge Plan Discharge Anticipated Discharge Date/Time: 03/24/24 11:54 Patient Disposition: Home, Self-Care Discharge Diagnosis: tia Referrals: Physician,None [Primary Care Provider] - 1 Week Discharge Medications: New atorvastatin 80 mg Tablet 80 mg PO DAILY Qty: 90 0RF aspirin 81 mg Tablet,Delayed Release (Dr/Ec) 81 mg PO DAILY Qty: 90 0RF valsartan 40 mg tablet 20 mg PO BID Qty: 60 0RF (DME) blood pressure monitor [Blood Pressure Kit] Kit See Rx Instructions .Route Qty: 1 0RF Rx Instructions: As directed Continued vitamin D3-vitamin K2 25 mcg (1,000 unit)-90 mcg Tablet,Disintegrating 1 tab PO DAILY Discharge Orders: Discharge Order (Routine); Ordered 03/24/24 Ordered By: Lukasz Crawford Diet: Advance to usual diet Activity on Discharge: As tolerated Stand Alone Forms: Patient Portal Discharge page Print Language: Citizen Of [place] Care Plan Goals: Patient was admitted to hospital because of expressive aphasia-possible TIA, CTA and MRI negative, echo EF is 40%, seen by neurology recommended to continue aspirin, statin, seen by PT recommended home with no services. Patient has mild fluctuating BP-monitor BP at home if stay consistently elevated above 140 mmhg -start valsartan,and further management outpatient, patient was strongly advised to follow-up with PCP outpatient. Patient was strongly advised to get PCP appointment-patient is saying that he will get it next week through his employer, seems motivated to make appointment with PCP also told him once he has insurance settled he can also called Cardiology office, need to follow-up with Cardiology. Health Concerns: As above. Plan of Treatment: As above. Assessment: As above.
[2024-03-24 15:25] VITALS: BP 120/77; PULSE 76; RESP 18; TEMP 37.5; O2SAT 98
[2024-03-24] MEDS: Enoxaparin Sodium 40 MG/0.4 ML SYRINGE SUBCUT (16:26)
== END 2024-03-24 17:42 | disposition home or self-care (01) | DRG 69 ==
LOC: HO.ED 14:36 → HO.EDOVER 15:32 → HO.IMC 16:13
PROVIDERS: Physician Assistant Medical; Admitting Provider Physician Assistant; Emergency Provider Student in an Organized Health Care Education/Training Program; Visit Provider Internal Medicine
DX: G45.9 Transient cerebral ischemic attack, unspecified (principal); R47.01 Aphasia; I25.10 Atherosclerotic heart disease of native coronary artery without angina pectoris; I10 Essential (primary) hypertension; D64.9 Anemia, unspecified; E87.6 Hypokalemia; Z91.148 Patient's other noncompliance with medication regimen for other reason; Z95.5 Presence of coronary angioplasty implant and graft; Z79.899 Other long term (current) drug therapy
CPT/HCPCS: 36415; 70450; 70496; 70498; 70551; 80048; 80061; 80076; 81001; 82550; 82947; 83036; 83735; 84100; 84484; 85025; 85027; 85610; 85730; 93005; 93306; 97161; 97165; 99285; J1650; Q9957; Q9967

== ENCOUNTER → 2024-03-23 13:28 | Outpatient (BNV) | payer SELFPAY | PROVIDERS: Admitting Provider Physician Assistant; Emergency Provider Student in an Organized Health Care Education/Training Program; Visit Provider Internal Medicine | DX: R94.31 Abnormal electrocardiogram [ECG] [EKG] (principal) | CPT/HCPCS: 93010 ==

== ENCOUNTER 2024-03-23 15:13 | Outpatient (BNV) | payer SELFPAY | END 2024-03-24 07:00 | PROVIDERS: Admitting Provider Physician Assistant; Emergency Provider Student in an Organized Health Care Education/Training Program; Visit Provider Internal Medicine | DX: I35.8 Other nonrheumatic aortic valve disorders (principal) | CPT/HCPCS: 93306 ==

== ENCOUNTER → 2024-03-23 15:13 | Outpatient (BNV) | payer SELFPAY | PROVIDERS: Admitting Provider Physician Assistant; Emergency Provider Student in an Organized Health Care Education/Training Program; Visit Provider Psychiatry & Neurology Neurology | DX: R47.01 Aphasia (principal) | CPT/HCPCS: 99222 ==

== ENCOUNTER → 2024-03-23 15:13 | Outpatient (BNV) | payer SELFPAY | PROVIDERS: Admitting Provider Physician Assistant; Emergency Provider Student in an Organized Health Care Education/Training Program; Visit Provider Internal Medicine | DX: R47.01 Aphasia (principal) | CPT/HCPCS: 99223; 99239 ==

== ENCOUNTER 2025-04-10 04:08 | Emergency (ER) | payer MEDICARE, SELFPAY ==
[2025-04-10] VITALS (7 sets, daily range): BP systolic 139–167; BP diastolic 91–109; PULSE 74–91; RESP 12–22; TEMP 36.8–36.9; O2SAT 95–98; BMI 29.8; BMI 29.6
--- NOTE | 2025-04-10 | ECG_ITS ---
Test Reason : CP Blood Pressure : */* mmHG Vent. Rate : 91 BPM Atrial Rate : 91 BPM P-R Int : 158 ms QRS Dur : 102 ms QT Int : 360 ms P-R-T Axes : 22 -40 2 degrees QTcB Int : 442 ms Sinus rhythm with Premature atrial complexes with Aberrant conduction Left axis deviation Minimal voltage criteria for LVH, may be normal variant ( R in aVL ) Inferior infarct (cited on or before 23-Mar-2024) Possible Anterolateral infarct (cited on or before 23-Mar-2024) Abnormal ECG When compared with ECG of 23-Mar-2024 14:08, Aberrant conduction is now Present Referred By: Generic ED Physician Electronically Signed By: NADJA SALMON
--- NOTE | ~2025-04-10 | XR_ITS ---
CLINICAL HISTORY: CP 1 view chest x-ray Comparison: None provided Findings: Subtle hazy right basilar atelectasis/infiltrate. Normal size heart. No acute fracture. IMPRESSION: Subtle hazy right basilar atelectasis/infiltrate. This document has been electronically signed by: Kendal Augustine MD on 04/10/2025 06:06:15
--- NOTE | 2025-04-10 04:24 | ED_ITS ---
HPI - Chest Pain General Chief Complaint: Chest Pain Stated Complaint: Slight Chest Pain Time Seen by Provider: 04/10/25 04:16 Source: patient Mode of arrival: ambulatory Limitations: no limitations History of Present Illness ED Provider: Dr. Suzie Loredo HPI narrative: Patient comes to the emergency room accompanied by family, patient is complaining of chest pain radiating towards the left arm. Patient states that since yesterday, approximately 12 hours ago, patient had intermittent chest pain. According to the patient, he was at work and he started feeling some chest discomfort which gradually resolved by late in the evening. The patient went to sleep asymptomatic, and a proximally hour and a half ago he woke up complaining of chest pain radiating towards his left arm. Patient's family members who are at bedside, state that the patient does have history of anxiety which usually seems to make the pain worse. Patient denies any shortness of breath. Patient states that he has cardiac history, has cardiac stents placed in 2011 in [place] Related Data Home Medications ?Medication ?Instructions ?Recorded ?Confirmed vitamin D3 25 mcg (1,000 unit)-vit 1 tab PO DAILY 03/1403/23/24 K2 90 mcg disintegrating tablet Previous Rx's ?Medication ?Instructions ?Recorded aspirin 81 mg tablet,delayed 81 mg PO DAILY #90 tabs 0 03/24/24 release atorvastatin 80 mg tablet 80 mg PO DAILY #90 tabs 03/14 11/06 blood pressure monitor (Blood #1 ea 03/24/24 Pressure Kit) valsartan 40 mg tablet 20 mg (1/2 x 40 mg) PO BID # 60 tabs 03/24/24 Allergies Allergy/AdvReac Type Severity Reaction Status Date / Time No Known Allergies Allergy Verified 04/10/25 04:13 Review of Systems 2 Review of Systems: Constitutional : No Weight loss, No Fever, No Chills, No Night Sweats, No Fatigue, No Malaise ENT/Mouth : No Hearing loss, No Ear Pain, No Nasal Congestion, No Sinus Pain, No Hoarseness, No sore throat, No Rhinorrhea, No Swallowing Difficulty Eyes: No Eye Pain, No Swelling, No Redness, No Foreign Body, No Discharge, No Vision Changes Cardiovascular : Complaining of chest discomfort, mild, radiating towards the left arm, No SOB, No Dyspnea on Exertion, No Orthopnea, No Edema, No Palpitations Respiratory : No Cough, No Sputum, No Wheezing, No Smoke Exposure, No Dyspnea Gastrointestinal : No Nausea, No Vomiting, No Diarrhea, No Constipation, No abdominal Pain, No Hematochezia, No Melena Genitourinary : no irregular bleeding, No Dysuria, No Urinary Frequency, No Hematuria, No Urinary Incontinence, No Urgency, No Flank Pain, No Urinary Flow Changes, No Hesitancy Musculoskeletal : No joint pain, No Myalgias, No Joint Swelling Skin : No Skin Lesions, No rash Neuro : No Weakness, No Numbness, No Paresthesias, No Loss of Consciousness, No Dizziness, No Headache Psych : No Anxiety/Panic, No Depression, No SI/HI/AH/VH, No Social Issues, Heme/Lymph: No Bruising, No Bleeding,No Lymphadenopathy Endocrine : No Polyuria, No Polydipsia, No Temperature Intolerance [facility] Past Medical History Medical History CAD (coronary artery disease) Hypertension Social History Social History (Updated 03/23/24 @ 15:37 by MARJORIE Lozano) Alcohol intake: current Alcohol intake frequency: holidays/special occasions only Comment: previously heavy drinker Patient Tobacco Use Status: Former Tobacco user Smoked in Last 30 Days: No Use of substances other than those prescribed or required for medical reasons: No Advance Directives: No Advance Directives Information Provided: Yes service: No Physical Exam 2 Vital Signs: Vital Signs: Last Vital Signs Temp 98.4 F 04/10/25 06:25 Pulse 81 04/10/25 06:25 Resp 17 04/10/25 06:25 BP 139/91 H 04/10/25 06:25 Pulse Ox 95 04/10/25 06:25 O2 Del Method Room Air 04/10/25 06:25 BMI result Body Mass Index 29.6 Const: Other: Insert Appearance: Alert. Oriented X3. No acute distress. Eyes: Pupils equal, round and reactive to light. ENT: Pharynx normal. Neck: Normal inspection. Neck supple. No lymph nodes noted. No crepitus CVS: Normal heart rate and rhythm. Pulses normal. Normal S1 and S2 Respiratory: No respiratory distress. Breath sounds normal. No Wheezing. No rales Abdomen: Soft and nontender. No rigidity. No distention. Skin: Skin warm and dry. Normal skin color. Normal skin turgor. Extremities: No lower extremity edema. No Lacerations. No Rash Neuro: Oriented X 3. No motor deficit. No sensory deficit. Moving all extremities. No slurred speech. CN 2 through 12 grossly intact Psych: calm, cooperative, a bit anxious Course Course Course Narrative: Patient reports intermittent chest pain that started 12 hours ago which quickly self-resolved. Patient went to bed asymptomatic, woke up 1-1/2 hours ago complaining of mild left-sided chest pain radiating towards the left arm. Patient also admits to having anxiety. Patient does have cardiac history and states that he has cardiac stents Patient was given a full dose of aspirin and sublingual nitroglycerin 0.4 mg EKG does not show any acute changes All of patient's labs pending Medications Administered Generic Name Dose Route Start Last Admin Trade Name Freq PRN Reason Stop Dose Admin Heparin Sodium/Sodium Chloride 25,000 unit in 250 mls @ 0 mls/hr 04/10/25 06:15 04/10/25 06:24 Heparin Sodium,Porcine/1/2ns IVCONT 14 units/kg/hr .Q0M NATALY 12.01 mls/hr Protocol Administration Per Protocol Discontinued Medications Generic Name Dose Route Start Last Admin Trade Name Freq PRN Reason Stop Dose Admin Aspirin 325 mg 04/10/25 04:23 04/10/25 04:42 Aspirin Enteric Coated 325 Mg Tablet. PO 04/10/25 04:24 325 mg ONCE ONE Administration Atorvastatin Calcium 80 mg 04/10/25 05:45 04/10/25 06:11 Atorvastatin Calcium 80 Mg Tablet PO 04/10/25 05:46 80 mg ONCE ONE Administration Heparin Sodium (Porcine) 5,000 unit 04/10/25 05:39 04/10/25 06:12 Heparin Sodium,Porcine 5,000 Unit/Ml Vial IVPUSH 04/10/25 05:40 5,000 unit ONCE ONE Administration Lorazepam 1 mg 04/10/25 04:24 04/10/25 04:42 Lorazepam 1 Mg Tablet PO 04/10/25 04:25 1 mg ONCE ONE Administration Metoprolol Tartrate 25 mg 04/10/25 05:45 04/10/25 06:11 Metoprolol Tartrate 25 Mg Tablet PO 04/10/25 05:46 25 mg ONCE ONE Administration Protocol Nitroglycerin 0.4 mg 04/10/25 05:41 06/28/25 06:11 Nitroglycerin 0.4 Mg Tab.Subl SUBLINGUAL 04/10/25 05:42 0.4 mg ONCE ONE Administration Medical Decision Making Medical Decision Making [facility] Narrative: My interpretation of EKG: Normal sinus rhythm, heart rate 91, no ST segment depressions or elevations, no T-wave inversions, QTC 442 My interpretation of labs: Hematology does not show any acute abnormality. No abnormality in patient's chemistry, BNP is 221, no previous labs for comparison. Troponin is 574.8. We repeated an EKG, my interpretation: Normal sinus rhythm, heart rate 81, no ST segment depression or elevation, no more prominent T-wave inversions in lead V4 V5 V6, QTC 462 After the above-mentioned medication, patient states that his pain nearly resolved and feels much better. Vitals are stable, blood pressure 159/99, pulse 78, respirations 12, temperature 98.2 degrees, oxygen saturation 97% on room air. Patient was started on IV heparin, p.o. metoprolol and atorvastatin I discussed the patient's EKG history, physical exam and lab findings with Dr. Price from Cardiology. Recommendations: [facility] I spoke with agricultural research technician Dr. Gonzalez from [facility], patient has been accepted, patient will be going to the inpatient floor I discussed the above-mentioned with the patient and his family, all agree with the plan. Current vitals: Blood pressure 139/91, pulse 81, respirations 17, temperature 98.4 degrees, oxygen saturation 95% on room air Patient is awake alert and oriented x3, coherent, patient states that he is completely pain-free at this time. 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 04/10/25 04:30 04/10/25 05:05 Labs: Lab Results 04/10/25 04/10/25 04/10/25 Range/Units 04:30 05:05 05:43 WBC 7.8 (4.8-10.8) X10*3/uL RBC 4.81 (4.60-5.80) X10*6/uL Hgb 15.2 (14.0-18.0) g/dl Hct 42.2 (42.0-52.0) % MCV 87.7 (80.0-98.0) fL MCH 31.6 (27.0-33.0) pg MCHC 36.0 (31.0-36.0) g/dl RDW 12.9 (11.0-16.0) % Plt Count 206 (160-400) X10*3/uL MPV 9.2 L (9.4-12.4) fL Immature Gran % (Auto) 0.3 (0.0-0.4) % Neut % (Auto) 62.6 (45-73) % Lymph % (Auto) 31.3 (20-40) % Elliott % (Auto) 5.4 (2-11) % Eos % (Auto) 0.1 (0-4) % Baso % (Auto) 0.3 (0-2) % Lymph # (Auto) 2.4 (1.2-4.9) X10*3/uL Elliott # (Auto) 0.4 (0.1-1.2) X10*3/uL Eos # (Auto) 0.0 (0.0-0.4) X10*3/uL Baso # (Auto) 0.0 (0.0-0.2) X10*3/uL Abs Immat Gran (auto) 0.02 (0.00-0.03) X10*3/uL Absolute Neuts (auto) 4.9 (2.0-8.3) x10*3/uL Absolute Nucleated RBC 0.000 (0.0-0.012) X10*3/uL Nucleated RBC % (auto) 0.0 (0.0-0.2) /100WBC PT 10.5 L (10.9-12.4) SEC INR 0.9 (0.9-1.1) aPTT Heparin Protocol 31.4 L (53-77.9) SEC Sodium 141 (135-145) mmol/L Potassium 3.8 (3.3-5.1) mmol/L Chloride 109 H (96-108) mmol/L Carbon Dioxide 22 (22-29) mmol/L Anion Gap 14 (12-20) BUN 17 H (9-16) mg/dL Creatinine 1.07 (0.5-1.4) mg/dL Estim Creat Clear Calc 69.2 Estimated GFR > 60 Random Glucose 134 H (60-115) mg/dL Calcium 9.7 (8.4-10.2) mg/dL Total Bilirubin 0.9 (0.0-1.0) mg/dL Direct Bilirubin 0.2 (0.0-0.5) mg/dL AST 38 H (5-37) U/L ALT 31 (0-40) U/L Alkaline Phosphatase 66 (39-117) U/L Troponin I High Sens 574.8 H* D (<3.5-35.0) ng/L B-Natriuretic Peptide 221 H (<100) pg/mL Total Protein 7.2 (6.5-8.0) g/dL Albumin 4.3 (3.5-5.0) g/dL Independent Interpretation I performed an independent interpretation of an: EKG and Plain X-Ray Interpretation: My interpretation of chest x-ray: No acute abnormality, no signs of pulmonary edema or infiltrates Critical Care Time Critical Care Time Critical Care Time: Yes Total Critical Care Time: 90 Attestation: I have personally provided critical care time. Time includes review of lab data, radiology results, discussion with consultants, and monitoring for potential decompensation. Intervention performed as documented. Discharge Plan Discharge Clinical Impression: Acute non-ST elevation myocardial infarction (NSTEMI) Patient Disposition: [facility] Hospital Transfer Details: [facility] Prescriptions: No Action vitamin D3-vitamin K2 25 mcg (1,000 unit)-90 mcg Tablet,Disintegrating 1 tab PO DAILY atorvastatin 80 mg Tablet 80 mg PO DAILY Qty: 90 0RF aspirin 81 mg Tablet,Delayed Release (Dr/Ec) 81 mg PO DAILY Qty: 90 0RF valsartan 40 mg tablet 20 mg PO BID Qty: 60 0RF (DME) blood pressure monitor [Blood Pressure Kit] Kit See Rx Instructions .Route Qty: 1 0RF Rx Instructions: As directed Print Language: Emirati
[2025-04-10 04:34] LABS: MANUAL DIFF FLAG NO
[2025-04-10 04:35] LABS: Basophils Percent Auto 0.3 % (0-2); Eosinophils Percent Auto 0.1 % (0-4); Hematocrit 42.2 % (42.0-52.0); Hemoglobin 15.2 g/dl (14.0-18.0); Imm Gran Abs Auto 0.02 X10*3/uL (0.00-0.03); Imm Gran Pct Auto 0.3 % (0.0-0.4); Lymphocytes Absolute Auto 2.4 X10*3/uL (1.2-4.9); Lymphocytes Percent Auto 31.3 % (20-40); Mean Corpuscular Hemoglobin 31.6 pg (27.0-33.0); Mean Corpuscular Volume 87.7 fL (80.0-98.0); Mean Platelet Volume 9.2 fL (9.4-12.4); Monocytes Absolute Auto 0.4 X10*3/uL (0.1-1.2); Monocytes Percent Auto 5.4 % (2-11); Neutrophils Absolute Auto 4.9 x10*3/uL (2.0-8.3); Neutrophils Percent Auto 62.6 % (45-73); Platelet Count 206 X10*3/uL (160-400); Red Blood Count 4.81 X10*6/uL (4.60-5.80); Red Cell Distribution Width 12.9 % (11.0-16.0); White Blood Count 7.8 X10*3/uL (4.8-10.8)
[2025-04-10] MEDS: LORazepam 1 MG TABLET PO (04:42)
[2025-04-10] MEDS: Aspirin Enteric Coated 325 MG TABLET.DR PO (04:42)
[2025-04-10 05:01] LABS: B Type Natriuretic Peptide 221 pg/mL (<100)
[2025-04-10 05:28] LABS: Alanine Aminotransferase 31 U/L (0-40); Albumin Level 4.3 g/dL (3.5-5.0); Alkaline Phosphatase 66 U/L (39-117); Anion Gap 14 (12-20); Aspartate Amino Transferase 38 U/L (5-37); Bilirubin Direct 0.2 mg/dL (0.0-0.5); Bilirubin Total 0.9 mg/dL (0.0-1.0); Blood Urea Nitrogen 17 mg/dL (9-16); Calcium 9.7 mg/dL (8.4-10.2); Carbon Dioxide 22 mmol/L (22-29); Chloride 109 mmol/L (96-108); Creatinine Clr Calc Pharmacy 69.2; Estimated Glomerular Filt Rate > 60; Glucose Random 134 mg/dL (60-115); Potassium 3.8 mmol/L (3.3-5.1); Sodium 141 mmol/L (135-145); Total Protein 7.2 g/dL (6.5-8.0)
[2025-04-10 05:39] LABS: Troponin-I High Sensitivity 574.8 ng/L (<3.5-35.0)
--- NOTE | 2025-04-10 05:41 | ECG_ITS ---
Test Reason : CP, ELEVATED TROP Blood Pressure : */* mmHG Vent. Rate : 81 BPM Atrial Rate : 81 BPM P-R Int : 162 ms QRS Dur : 96 ms QT Int : 398 ms P-R-T Axes : 19 -41 -88 degrees QTcB Int : 462 ms Normal sinus rhythm Left axis deviation Minimal voltage criteria for LVH, may be normal variant ( R in aVL ) Inferior infarct (cited on or before 23-Mar-2024) Anterolateral infarct (cited on or before 23-Mar-2024) Abnormal ECG When compared with ECG of 10-Apr-2025 04:08, Aberrant conduction is no longer Present Serial changes of Anterior infarct Present Referred By: Suzie Loredo Electronically Signed By: NADJA SALMON
[2025-04-10 05:55] LABS: INTERNATIONAL NORM RATIO 0.9 (0.9-1.1); Prothrombin Time 10.5 SEC (10.9-12.4)
[2025-04-10 05:58] LABS: PTT Heparin Drip 31.4 SEC (53-77.9)
[2025-04-10] MEDS: Metoprolol Tartrate 25 MG TABLET PO (06:11)
[2025-04-10] MEDS: Nitroglycerin 0.4 MG TAB.SUBL SUBLINGUAL (06:11)
[2025-04-10] MEDS: Atorvastatin Calcium 80 MG TABLET PO (06:11)
[2025-04-10] MEDS: Heparin Sodium,Porcine 5,000 UNIT/ML VIAL 5000 UNIT IVPUSH (06:12)
[2025-04-10] MEDS: Heparin Sodium,Porcine/1/2NS 25,000 UNIT/250 ML IV.SOLN 12.01 UNIT IVCONT (06:24)
[2025-04-10 07:01] LABS: Hematocrit 39.9 % (42.0-52.0); Hemoglobin 14.3 g/dl (14.0-18.0); Mean Corpuscular HGB Conc 35.8 g/dl (31.0-36.0); Mean Corpuscular Hemoglobin 31.4 pg (27.0-33.0); Mean Corpuscular Volume 87.7 fL (80.0-98.0); Mean Platelet Volume 9.4 fL (9.4-12.4); Platelet Count 219 X10*3/uL (160-400); Red Blood Count 4.55 X10*6/uL (4.60-5.80); White Blood Count 7.3 X10*3/uL (4.8-10.8)
--- NOTE | 2025-04-10 07:07 | PC.NURSE ---
This RN resumed care of patient at 0700, pt currently getting transferred to [facility] [place]. This RN called report d/ night nurse being told they were unable to take report. RN took report at this time, EMS here to bring pt to [place] [address] room 5. All questions answered, pt in agreement with plan, he verbalizes no pain or SOB/HELTON at this time. Pt being transported with Heparin currently infusing at 14u/kg on transport. Hand over given to EMS.
== END 2025-04-10 07:27 | disposition short-term general hospital (02) ==
PROVIDERS: Emergency Provider Emergency Medicine
DX: I21.4 Non-ST elevation (NSTEMI) myocardial infarction (principal); R07.89 Other chest pain; M79.602 Pain in left arm; R79.89 Other specified abnormal findings of blood chemistry; R94.31 Abnormal electrocardiogram [ECG] [EKG]; Z79.899 Other long term (current) drug therapy; Z87.891 Personal history of nicotine dependence
CPT/HCPCS: 36415; 71045; 80048; 80076; 83880; 84484; 85025; 85027; 85610; 85730; 93005; 96365; 96375; 99285; J1644

== ENCOUNTER → 2025-04-10 04:08 | Outpatient (BNV) | payer MEDICARE, SELFPAY | PROVIDERS: Emergency Provider Emergency Medicine; Visit Provider Internal Medicine | DX: I49.1 Atrial premature depolarization (principal); I25.2 Old myocardial infarction | CPT/HCPCS: 93010 ==

== ENCOUNTER 2025-06-15 13:15 | Emergency (ER) | payer OTHER, SELFPAY ==
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
[2025-06-15 13:40] VITALS: BP 113/71; PULSE 65; RESP 18; TEMP 36.3; O2SAT 97; BMI 27.1
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
[2025-06-15 14:00] VITALS: BP 115/70; PULSE 70; RESP 18; TEMP 36.4; O2SAT 100
[2025-06-15 15:30] VITALS: BP 112/60; PULSE 68; RESP 16; TEMP 36.4; O2SAT 100
[2025-06-15 15:40] VITALS: BP 112/60; PULSE 68; RESP 16; TEMP 36.4; O2SAT 100
== END 2025-06-15 15:43 | disposition home or self-care (01) ==
PROVIDERS: Emergency Provider Emergency Medicine
DX: S09.90XA Unspecified injury of head, initial encounter (principal); S16.1XXA Strain of muscle, fascia and tendon at neck level, initial encounter; V43.62XA Car passenger injured in collision with other type car in traffic accident, initial encounter; Y93.9 Activity, unspecified; Y92.9 Unspecified place or not applicable; Y99.9 Unspecified external cause status; M54.50 Low back pain, unspecified; I10 Essential (primary) hypertension; Z95.1 Presence of aortocoronary bypass graft
CPT/HCPCS: 70450; 72100; 72125; 99283; 99284

== ENCOUNTER → 2025-06-15 13:51 | Outpatient (BNV) | payer OTHER, SELFPAY | PROVIDERS: Emergency Provider Emergency Medicine; Visit Provider Radiology Diagnostic Radiology | DX: M50.33 Other cervical disc degeneration, cervicothoracic region (principal); S09.90XA Unspecified injury of head, initial encounter; M47.817 Spondylosis without myelopathy or radiculopathy, lumbosacral region | CPT/HCPCS: 70450; 72100; 72125 ==